=== PATIENT | female | born 1990 | race Two or more races ===

== ENCOUNTER 2020-07-25 15:35 | Emergency (ER) | payer OTHER, SELFPAY ==
[2020-07-25 15:39] VITALS: BP 120/77; PULSE 82; RESP 16; TEMP 36.9; O2SAT 98; BMI 21.6
[2020-07-25 16:43] LABS: Influenza A PCR NEGATIVE (Negative); Influenza B PCR NEGATIVE (Negative); Resp Syncy Virus RNA Qual PCR NEGATIVE (Negative)
[2020-07-25 16:55] LABS: SARS COV2 PCR INHOUSE POSITIVE (Negative)
--- NOTE | 2020-07-25 17:29 | ED.GENADULT ---
HPI - General Adult General Chief complaint: General Medical Stated complaint: fever Time Seen by Provider: 07/25/20 15:44 Source: patient Mode of arrival: ambulatory Limitations: no limitations History of Present Illness HPI narrative: 30-year-old female presenting to the ED with her daughter for a COVID test. Patient reports that her daughter's 3-month-old and has sickle cell and she has not been out of the house and she woke up with a fever today. 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 Patient denies any other symptoms complaints or concerns at this time. Related Data Previous Rx's Medication Instructions Recorded acetaminophen [Tylenol Extra 1,000 mg PO QID PRN #14 tab 07/25/20 Strength] azithromycin See Rx Instructions .ROUTE 07/25/20 .COMPLEX #6 tab Allergies Allergy/AdvReac Type Severity Reaction Status Date / Time No Known Allergies Allergy Unverified 04/10/20 16:54 [No Known Allergies*] Review of Systems Review of Systems: Constitutional : No Fever, No Chills, No fatigue, No Malaise ENT/Mouth : No sore throat, No runny nose Eyes: No Discharge Cardiovascular : No Chest Pain, No SOB Respiratory : No Cough, No Sputum, No Wheezing, No Smoke Exposure, No Dyspnea Gastrointestinal : No Nausea, No Vomiting, No Diarrhea Genitourinary : No irregular bleeding, No Dysuria, No Urinary Frequency, No Hematuria, No Urinary Incontinence, No Urgency, No Flank Pain, Musculoskeletal : No Myalgia Skin : No rash Neuro : No Headache Yes all other systems are reviewed and are negative [facility] Past Medical History Attestation statement: The following information was validated with the patient. Medical History SVT (supraventricular tachycardia) Social History Social History Advance Directives: No Advance Directives Information Provided: No Physical Exam Vital Signs: Vital Signs: Last Vital Signs Temp 98.4 F 07/25/20 15:39 Pulse 82 07/25/20 15:39 Resp 16 07/25/20 15:39 BP 120/77 07/25/20 15:39 Pulse Ox 98 07/25/20 15:39 Body Mass Index 21.6 vital signs have been reviewed as normal and appeared to be correct. Blood pressure normal. Heart rate normal. Respiration rate normal. Temperature normal. Oxygen saturation normal. Appearance: Alert. Oriented X3. No acute distress. Head: Normal external exam. Normocephalic. Atraumatic. No Alvarado signs noted. No raccoon eyes noted Eyes: PERRLA. EOMI. Conjunctiva and sclera normal. Eyelids normal. ENT: EAC normal. TM's Normal. Pharynx normal. Uvula midline. Moist mucous membranes. No trismus noted. No drooling noted. No muffled voice noted. Neck: Normal inspection. Neck supple. FROM. No adenopathy. Thyroid Normal. No meningeal signs. No neck mass noted. CVS: Normal heart rate and rhythm. Heart sound normal. No murmurs noted. Pulses normal throughout. Respiratory: No respiratory distress. Painless inspiration. Breath sounds normal. No wheezes/rales/rhonchi noted. Chest nontender. No accessory muscle usage noted or decreased air movement noted. Abdomen: Soft and nontender. Bowel sounds normal in all 4 quadrants. No distention noted. No organomegaly noted. No visible injury noted. Back: No CVA tenderness. Full range of motion noted. Skin: Skin warm and dry. Normal skin color. Normal skin turgor. No rashes/lesions/lacerations noted. Extremities: No lower extremity edema. Extremities exhibit normal range of motion. Extremities nontender. Neuro: Oriented X 3. No motor deficit. No sensory deficit. Reflexes normal. Course Course Course Narrative: Patient positive for COVID. Will DC home with symptomatic treatment along with instructions to return if any new or worsening symptoms to follow up with primary care provider. Patient understands agrees the plan. Medical Decision Making Medical Records Medical records reviewed: Yes I reviewed the patient's medical records. Lab Data Lab results reviewed: Yes I reviewed the patient's lab results. Labs: Lab Results 07/25/20 Range/Units 15:53 Coronavirus (PCR) POSITIVE A (Negative) Influenza Type A (PCR) NEGATIVE (Negative) Influenza Type B (PCR) NEGATIVE (Negative) RSV RNA Qual (PCR) NEGATIVE (Negative) Discharge Plan Discharge Clinical Impression: COVID-19 Patient Disposition: Home, Self-Care Instructions: COVID-19 (Coronavirus Disease 2019) (ED) Additional Instructions: Based on your symptoms and history we have sent a COVID-19. Although your RESULT IS PENDING at this time. RESULTS should return within 72 hours. At this time you will be contacted with either NEGATIVE OR POSITIVE results. -Please wait until we contact you for your results. At this time you will be okay for discharge. Please plan for self quarantine for up to 14 days. Do not expose yourself to others. You may not go to work. If testing does come back negative you may return to activities as long as you are no longer having any symptoms for at least 3 days. Please continue to follow cold instructions and wash your hands frequently. You may take Tylenol as directed on the bottle for pain or fever. Patient seen in the emergency department on 07/25/2020 and should be excused from work until negative test results AND until 72 hours without any symptoms AND at least 10 days have passed since symptoms first appeared or since last exposure to COVID-19 positive patient CDC Guidelines for home isolation: - Stay away from others - WEAR A MASK if you are sick AND STAY HOME - Cover your mouth and nose with a tissue when you cough or sneeze. Dispose of tissues in a lined trash can and wash your hands immediately with soap and water for at least 20 seconds. If soap and water are not available, clean hands with alcohol-based hand sulfur chloride operator that contains at least 60% alcohol. - Clean your hands often with soap and water for at least 20 seconds - Avoid touching your eyes, nose and mouth with unwashed hands - Do not share dishes, drinking glasses, cups, eating utensils, towels, or bedding with other people in your home. After using these items, wash them thoroughly with soap and water or put in the marble polisher hand. - Clean high-touch surfaces in your isolation area ( sick room and bathroom) every day; let a caregiver clean and disinfect high-touch surfaces in other areas of the home. Clean the area or item with soap and water or another detergent if it is dirty. Then, use a household disinfectant. - Limit contact with pets and animals: If you must care for a pet, wash your hands before and after interacting with them). Prescriptions: New acetaminophen [Tylenol Extra Strength] 500 mg tablet 1,000 mg PO QID PRN (Reason: fever or pain) Qty: 14 RF: 0 azithromycin 250 mg tablet See Rx Instructions .ROUTE .COMPLEX Qty: 6 RF: 0 Referrals: Physician,None [Primary Care Provider] - 2 days (your pcp) Stand Alone Forms: Work/School Release Interventions: ED Discharge Assessment Last Done: 07/25/20 17:49 Discharge Date/Time: 07/25/20 17:50 Print Language: Sammarinese
== END 2020-07-25 17:50 | disposition home or self-care (01) ==
PROVIDERS: Physician Assistant Medical; Emergency Provider Emergency Medicine
DX: U07.1 COVID-19 (principal)
CPT/HCPCS: 0241U; 99283

== ENCOUNTER → 2022-07-14 12:14 | Outpatient (BNVA) | payer OTHER, SELFPAY | PROVIDERS: Visit Provider Physician Assistant | DX: S46.911A Strain of unspecified muscle, fascia and tendon at shoulder and upper arm level, right arm, initial encounter (principal); X50.3XXA Overexertion from repetitive movements, initial encounter | CPT/HCPCS: 99203 ==

== ENCOUNTER → 2022-07-21 14:01 | Outpatient (BNVA) | payer OTHER, SELFPAY | PROVIDERS: Visit Provider Physician Assistant Medical | DX: S46.911A Strain of unspecified muscle, fascia and tendon at shoulder and upper arm level, right arm, initial encounter (principal); X50.3XXA Overexertion from repetitive movements, initial encounter | CPT/HCPCS: 99213 ==

== ENCOUNTER → 2022-07-27 13:01 | Outpatient (BNVA) | payer OTHER, SELFPAY | PROVIDERS: Visit Provider Physician Assistant Medical | DX: S46.911D Strain of unspecified muscle, fascia and tendon at shoulder and upper arm level, right arm, subsequent encounter (principal); W50.3XXD Accidental bite by another person, subsequent encounter | CPT/HCPCS: 99213 ==

== ENCOUNTER → 2022-08-10 13:21 | Outpatient (BNVA) | payer OTHER, SELFPAY | PROVIDERS: Visit Provider Physician Assistant Medical | DX: S46.911D Strain of unspecified muscle, fascia and tendon at shoulder and upper arm level, right arm, subsequent encounter (principal); S33.9XXD Sprain of unspecified parts of lumbar spine and pelvis, subsequent encounter; X50.3XXD Overexertion from repetitive movements, subsequent encounter | CPT/HCPCS: 99213 ==

== ENCOUNTER 2022-08-16 13:00 | Outpatient (RCR) | payer OTHER, SELFPAY ==
--- NOTE | 2022-08-04 10:02 | MHC.PT.EP ---
[facility] [place] Office [place] Office [place] Office [address] [phone] F: [phone] F: [phone] F: [phone] F: [phone] Physical Therapy Plan of Care Date of Evaluation: Date of Surgery: NA Diagnosis: Lumbar strain Assessment: Alice is a 32 year old female who is referred to PT for lumbar strain . She injured herself at works about 2 weeks back while she was restraining a child. She experienced the pain the following day. She went to where she was given pain medication and stretches however her pain has no changed. On PT examination she presented with TTP over L QL, L lumbar paraspinals, 6/10 pain with sitting for more than 1 hour, bending and lifting, decreased lumbar ROM, decreased muscle strength, altered posture and gait. She is independent with all ADLS but has pain with them. 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 She would benefit from skilled PT to address the aforementioned impairments and improve tolerance to functional activities. Frequency and Duration: The patient will be seen 2/week for 5 weeks Short Term Goals: 1. Pt will have 50% decrease in pain which will enable to sleep in supine without pain in 2 weeks. 2. Pt will be able to move trunk through all planes of motion without pain which will enable her to dress her lower body in 3 weeks. Senior Care Goals: 1. Pt will demonstrate an increase in muscle strength by 1 grade which will enable her to perform ADLS at home without pain and modification in 4 weeks. 2. Pt will be independent with HEP and return to PLOF and work activities in 5 weeks. Treatment Plan: Modalities to reduce pain, spasms and effusion. Manual therapy to restore motion and function. Therapeutic exercise to improve strength and flexibility. Neuromuscular re-education for posture and balance. Therapeutic activities to return to functional activities of daily living. Electronically signed by: Kelsey Curry PT DPT Please sign and return to therapist. Thank you for your referral.
--- NOTE | 2022-09-08 13:42 | MHC.PT.DC ---
[facility] [place] Office [place] Office [place] Office [address] Talya Kirk [address] [phone] F: [phone] F: [phone] F: [phone] F: [phone] Physical Therapy Discharge Report Diagnosis: Lumbar strain Date of Surgery: NA Date of Evaluation: 08/04/22 Date of Discharge: 09/08/22 Treatments to Date: 3 Cancellations to Date: 4 No Shows to Date: 2 Discharge Status: Visit Non-compliance Discharge Summary: Alice attended only 3 PT visits. She has had 4 cancels and 2 no shows. She is therefore being d/c for non compliance Electronically signed by: Kelsey Curry PT DPT Please sign and return to therapist. Thank you for your referral.
== END 2022-09-08 13:42 | disposition home or self-care (01) ==
LOC: HO.PT 13:00
PROVIDERS: Visit Provider Physician Assistant Medical
DX: S39.012D Strain of muscle, fascia and tendon of lower back, subsequent encounter (principal)
CPT/HCPCS: 97110; 97112; 97140; 97161

== ENCOUNTER → 2022-08-17 12:46 | Outpatient (BNVA) | payer OTHER, SELFPAY | PROVIDERS: Visit Provider Physician Assistant Medical | DX: S46.911D Strain of unspecified muscle, fascia and tendon at shoulder and upper arm level, right arm, subsequent encounter (principal); X50.3XXD Overexertion from repetitive movements, subsequent encounter; M46.1 Sacroiliitis, not elsewhere classified | CPT/HCPCS: 99213 ==

== ENCOUNTER → 2022-08-31 13:23 | Outpatient (BNVA) | payer OTHER, SELFPAY | PROVIDERS: Visit Provider Physician Assistant Medical | DX: S33.9XXD Sprain of unspecified parts of lumbar spine and pelvis, subsequent encounter (principal); X50.3XXD Overexertion from repetitive movements, subsequent encounter; M46.1 Sacroiliitis, not elsewhere classified | CPT/HCPCS: 99213 ==

== ENCOUNTER → 2022-09-14 13:29 | Outpatient (BNVA) | payer OTHER, SELFPAY | PROVIDERS: Visit Provider Physician Assistant Medical | DX: S39.012D Strain of muscle, fascia and tendon of lower back, subsequent encounter (principal); X50.3XXD Overexertion from repetitive movements, subsequent encounter | CPT/HCPCS: 99213 ==

== ENCOUNTER → 2022-09-28 13:25 | Outpatient (BNVA) | payer OTHER, SELFPAY | PROVIDERS: Visit Provider Physician Assistant Medical | DX: S33.9XXD Sprain of unspecified parts of lumbar spine and pelvis, subsequent encounter (principal); X58.XXXD Exposure to other specified factors, subsequent encounter; M46.1 Sacroiliitis, not elsewhere classified | CPT/HCPCS: 99213 ==

== ENCOUNTER → 2022-10-13 10:06 | Outpatient (BNVA) | payer OTHER, SELFPAY | PROVIDERS: Visit Provider Physician Assistant Medical | DX: S46.911D Strain of unspecified muscle, fascia and tendon at shoulder and upper arm level, right arm, subsequent encounter (principal); S33.9XXD Sprain of unspecified parts of lumbar spine and pelvis, subsequent encounter; S33.6XXD Sprain of sacroiliac joint, subsequent encounter; X50.3XXD Overexertion from repetitive movements, subsequent encounter | CPT/HCPCS: 99213 ==

== ENCOUNTER 2024-01-11 12:13 | Emergency (ER) | payer SELFPAY ==
[2024-01-11 12:15] VITALS: BP 109/78; PULSE 100; O2SAT 98
--- NOTE | 2024-01-11 12:15 | ECG_ITS ---
Test Reason : CHEST PALPITATIONS Blood Pressure : / mmHG Vent. Rate : 093 BPM Atrial Rate : 093 BPM P-R Int : 102 ms QRS Dur : 084 ms QT Int : 370 ms P-R-T Axes : 071 087 045 degrees QTc Int : 460 ms Sinus rhythm with short [place] Nonspecific ST abnormality Abnormal ECG When compared to the previous EKG of No significant changes seen Referred By: Generic ED Physician Electronically Signed By:Koffi Guzman
[2024-01-11 12:17] VITALS: BP 124/72; PULSE 94; RESP 18; TEMP 36.5; O2SAT 100; BMI 21.8
--- NOTE | 2024-01-11 12:50 | ED.ARRPALP ---
HPI - Arrhythmia/Palpitations General Chief Complaint: Arrhythmia/Palpitations Stated Complaint: HR 180,PALPITATIONS, NOW NSR PER EMS Time Seen by Provider: 01/11/24 12:35 Source: patient and EMS Mode of arrival: EMS Limitations: no limitations History of Present Illness ED Provider: LUPILLO HPI narrative: 33 yo female with PMH of SVT used to be on metoprolol daily many years ago but lost follow up with PCP, not on OCPs, has frequent episodes at home but tries to break them on her own presents with c/o SVT today that she could not break and ended up having what sounds like syncopal event but did not wake up confused or incontinent. She has passed out with SVT in past. She is asking for cardiology referral MD complaint: heart racing Onset (ago): hour(s) (1) Duration: now resolved Severity: severe Context: occurred during rest Arrhythmia history: SVT Associated symptoms: syncope Treatments prior to arrival: adenosine (6mg, 12mg) Related Data Previous Rx's ?Medication ?Instructions ?Recorded acetaminophen 500 mg tablet 1,000 mg (2 x 500 mg) PO QID PRN 07/25/20 (Tylenol Extra Strength) fever or pain #14 tabs azithromycin 250 mg tablet See Rx Instructions PO .COMPLEX #6 07/25/20 tabs cyclobenzaprine 10 mg tablet 10 mg PO TID PRN mucle spasm #20 08/17/22 tabs ibuprofen 800 mg tablet 800 mg PO TID PRN pain #30 tabs 08/17/22 metoprolol succinate 25 mg 25 mg PO DAILY #30 tabs 01/11/24 tablet,extended release 24 hr (Toprol XL) Allergies Allergy/AdvReac Type Severity Reaction Status Date / Time No Known Allergies Allergy Verified 01/11/24 12:19 [No Known Allergies*] Review of Systems Review of Systems: Constitutional : No Fever, No Chills, No Fatigue ENT/Mouth : No sore throat, No Rhinorrhea Eyes: No Eye Pain, No Swelling, No Redness Cardiovascular : No Chest Pain, No SOB, No Dyspnea on Exertion, pos palpitations Respiratory : No Cough, No Sputum Gastrointestinal : No Nausea, No Vomiting, No Diarrhea, No abdominal Pain Genitourinary : No Dysuria, No Urinary Frequency, No Hematuria, Musculoskeletal : No joint pain, No Myalgias, No Joint Swelling Skin : No Skin Lesions, No rash Neuro : No Weakness, No Numbness, No Dizziness, no Headache Psych : No Anxiety/Panic, No Depression Heme/Lymph: No Bruising, No Bleeding,No Lymphadenopathy Endocrine : No Polyuria, No Polydipsia All other systems reviewed and are negative [facility] Past Medical History Attestation statement: The following information was validated with the patient. Source: old records reviewed Medical History SVT (supraventricular tachycardia) Social History Social History Alcohol intake: never Smoked in Last 30 Days: Yes Use of substances other than those prescribed or required for medical reasons: No Advance Directives: No Advance Directives Information Provided: Yes Do you have a plan to hurt others: No Plan Physical Exam Vital Signs: Vital Signs: Last Vital Signs Temp 97.7 F 01/11/24 12:17 Pulse 94 01/11/24 12:17 Resp 18 01/11/24 12:17 BP 124/72 01/11/24 12:17 Pulse Ox 100 01/11/24 12:17 O2 Del Method Room Air 01/11/24 12:17 BMI result Body Mass Index 21.8 Appearance: Alert. Oriented X3. No acute distress. Eyes: Pupils equal, round and reactive to light. ENT: Pharynx normal. Neck: Normal inspection. Neck supple. CVS: Normal heart rate and rhythm. Pulses normal. Respiratory: No respiratory distress. Breath sounds normal. Abdomen: Soft and nontender. Skin: Skin warm and dry. Normal skin color. Normal skin turgor. Extremities: No lower extremity edema. No calf ttp Neuro: Oriented X 3. No motor deficit. No sensory deficit. Medications Administered Discontinued Medications Generic Name Dose Route Start Last Admin Trade Name Freq PRN Reason Stop Dose Admin Sodium Chloride 1,000 mls @ 999 mls/hr 01/11/24 12:42 01/11/24 13:05 Ns IV 01/11/24 13:42 999 mls/hr .Q1H1M ONE Administration Medical Decision Making Medical Decision Making MDM Narrative: 33 yo female with SVT no long on Toprol due to lack of provider now having SVT at home that she can normall manage with maneuvers though today she could not - had to get adenosine to break. At this time had syncopal episode as well she is PERC negative. I am going to obtain labs lytes and hydrate will start on toprol and refer to cardiology Differential Diagnosis Differential Diagnoses: The differential diagnosis associated with the presentation includes SVT, lyte abnormallity Admission/Observation Consideration of admission/observation: Escalation of care including admission/observation considered work up negative stable for DC Lab Data [facility] Lab Attestation statement: I reviewed the patient's lab results. 01/11/24 13:02 01/11/24 13:02 Labs: Lab Results 01/11/24 01/11/24 Range/Units 13:02 13:13 WBC 4.8 (4.8-10.8) X10*3/uL RBC 4.23 (4.20-5.50) X10*6/uL Hgb 13.6 (12.0-16.0) g/dl Hct 38.3 (37.0-47.0) % MCV 90.5 (80.0-98.0) fL MCH 32.2 (27.0-33.0) pg MCHC 35.5 H (31.0-35.0) g/dl RDW 12.5 (11.0-16.0) % Plt Count 220 (160-400) X10*3/uL MPV 10.7 (9.4-12.3) fL Immature Gran % (Auto) 0.2 (0.0-0.4) % Neut % (Auto) 47.4 (45-73) % Lymph % (Auto) 38.5 (20-40) % Pepin % (Auto) 7.6 (2-11) % Eos % (Auto) 5.9 H (0-4) % Baso % (Auto) 0.4 (0-2) % Lymph # (Auto) 1.8 (1.2-4.9) X10*3/uL Pepin # (Auto) 0.4 (0.1-1.2) X10*3/uL Eos # (Auto) 0.3 (0.0-0.4) X10*3/uL Baso # (Auto) 0.0 (0.0-0.2) X10*3/uL Abs Immat Gran (auto) 0.01 (0.00-0.03) X10*3/uL Absolute Neuts (auto) 2.3 (2.0-8.3) x10*3/uL Absolute Nucleated RBC 0.000 (0.0-0.012) X10*3/uL Nucleated RBC % (auto) 0.0 (0.0-0.2) /100WBC Sodium 147 H (135-145) mmol/L Potassium 3.7 (3.3-5.1) mmol/L Chloride 113 H (96-108) mmol/L Carbon Dioxide 29 (22-29) mmol/L Anion Gap 9 L (12-20) BUN 8 L (9-16) mg/dL Creatinine 0.62 (0.5-1.4) mg/dL Estim Creat Clear Calc 115.0 Estimated GFR > 60 Random Glucose 91 (60-115) mg/dL Calcium 9.3 (8.4-10.2) mg/dL Magnesium 1.8 (1.6-2.6) mg/dL Total Bilirubin 0.8 (0.0-1.0) mg/dL Direct Bilirubin 0.3 (0.0-0.5) mg/dL AST 16 (5-31) U/L ALT 14 (0-31) U/L Alkaline Phosphatase 57 (39-117) U/L Total Protein 7.0 (6.5-8.0) g/dL Albumin 4.2 (3.5-5.0) g/dL TSH 0.66 (0.32-4.0) uIU/mL Beta HCG, Quant < 2 mIU/mL Urine Color Yellow Urine Appearance Clear Urine pH 7.5 (5.0-9.0) Ur Specific [place] <= 1.005 (1.005-1.025) Urine Protein Negative (Neg-Trace) mg/dL Urine Glucose (UA) Negative (Negative) mg/dL Urine Ketones Trace (Negative) mg/dL Urine Blood Negative (Negative) Urine Nitrite Negative (Negative) Ur Leukocyte Esterase Negative (Negative) Urine RBC 0-2 (0-2) /HPF Urine WBC 0-5 (0-5) /HPF Ur Squamous Epith Cells 0-2 (0-2) /HPF Urine Bacteria None Seen (None Seen) Hyaline Casts 0-2 (0-2) /LPF Independent Interpretation I performed an independent interpretation of an: EKG Interpretation: Rate: 93 Rhythm: NSR [place]: normal Normal P waves. Normal BETZY. Normal QRS complex. ST T wave : normal no SABA qTC: 460 prior studies: normal The study has been interpreted contemporaneously by me. . Independent Historian Clinical information obtained from an independent historian. History obtained from or confirmed by: Spouse External Record Review External record reviewed: Inpatient record Prescription Management I considered prescription management with: Other Discharge Plan Discharge Clinical Impression: Supraventricular tachycardia Patient Disposition: Home, Self-Care Instructions: Supraventricular Tachycardia (ED) Additional Instructions: return for worsening symptoms or concerns hold toprol if blood pressure less than 90 top number or heart rate under 60 follow up with cardiology stay hydrated and rest stay out of heat the next 3 days Prescriptions: New metoprolol succinate [Toprol XL] 25 mg tablet extended release 24 hr 25 mg PO DAILY Qty: 30 2RF No Action acetaminophen [Tylenol Extra Strength] 500 mg tablet 1,000 mg PO QID PRN (Reason: fever or pain) Qty: 14 0RF azithromycin 250 mg tablet See Rx Instructions .ROUTE .COMPLEX Qty: 6 0RF Rx Instructions: take 500 mg today (day 1), then 250 mg for 4 days (days 2-5) cyclobenzaprine 10 mg tablet 10 mg PO TID PRN (Reason: mucle spasm) Qty: 20 0RF ibuprofen 800 mg tablet 800 mg PO TID PRN (Reason: pain) Qty: 30 0RF Referrals: Koffi Guzman MD [Physician] - (project manager finance call to follow up) Stand Alone Forms: Work/School Release Print Language: Zambian
[2024-01-11] MEDS: 0.9 % Sodium Chloride 1,000 ML 999 ML IV ×2 (13:05→14:11)
[2024-01-11 13:15] LABS: MANUAL DIFF FLAG NO
[2024-01-11 13:17] LABS: Basophils Percent Auto 0.4 % (0-2); Eosinophils Absolute Auto 0.3 X10*3/uL (0.0-0.4); Eosinophils Percent Auto 5.9 % (0-4); Hematocrit 38.3 % (37.0-47.0); Hemoglobin 13.6 g/dl (12.0-16.0); Imm Gran Abs Auto 0.01 X10*3/uL (0.00-0.03); Imm Gran Pct Auto 0.2 % (0.0-0.4); Lymphocytes Absolute Auto 1.8 X10*3/uL (1.2-4.9); Lymphocytes Percent Auto 38.5 % (20-40); Mean Corpuscular HGB Conc 35.5 g/dl (31.0-35.0); Mean Corpuscular Hemoglobin 32.2 pg (27.0-33.0); Mean Corpuscular Volume 90.5 fL (80.0-98.0); Mean Platelet Volume 10.7 fL (9.4-12.3); Monocytes Absolute Auto 0.4 X10*3/uL (0.1-1.2); Monocytes Percent Auto 7.6 % (2-11); Neutrophils Absolute Auto 2.3 x10*3/uL (2.0-8.3); Neutrophils Percent Auto 47.4 % (45-73); Platelet Count 220 X10*3/uL (160-400); Red Blood Count 4.23 X10*6/uL (4.20-5.50); Red Cell Distribution Width 12.5 % (11.0-16.0); White Blood Count 4.8 X10*3/uL (4.8-10.8)
[2024-01-11 13:19] LABS: Appearance Urine Clear; Color Urine Yellow; Glucose Urine UA Negative (Negative); Leukocyte Esterase Urine Negative (Negative); Nitrite Urine Negative (Negative); PH 7.5 (5.0-9.0); Specific Gravity - Urine <= 1.005 (1.005-1.025); Urine Blood Negative (Negative); Urine Ketones Trace mg/dL (Negative); Urine Protein Negative (Neg-Trace)
[2024-01-11 13:22] LABS: Bacteria Urine None Seen (None Seen); Hyaline Casts Urine 0-2 /LPF (0-2); RBC Urine 0-2 /HPF (0-2); Squamous Epithelial Cell Urine 0-2 /HPF (0-2); WBC Urine 0-5 /HPF (0-5)
[2024-01-11 13:38] LABS: Alanine Aminotransferase 14 U/L (0-31); Albumin Level 4.2 g/dL (3.5-5.0); Alkaline Phosphatase 57 U/L (39-117); Anion Gap 9 (12-20); Aspartate Amino Transferase 16 U/L (5-31); Bilirubin Direct 0.3 mg/dL (0.0-0.5); Bilirubin Total 0.8 mg/dL (0.0-1.0); Blood Urea Nitrogen 8 mg/dL (9-16); Calcium 9.3 mg/dL (8.4-10.2); Carbon Dioxide 29 mmol/L (22-29); Chloride 113 mmol/L (96-108); Estimated Glomerular Filt Rate > 60; Glucose Random 91 mg/dL (60-115); HCG Quantitative < 2 mIU/mL; Magnesium 1.8 mg/dL (1.6-2.6); Potassium 3.7 mmol/L (3.3-5.1); Sodium 147 mmol/L (135-145)
[2024-01-11 13:51] LABS: TSH reflex Free T4 0.66 uIU/mL (0.32-4.0)
[2024-01-11 14:00] VITALS: BP 103/55; PULSE 78; RESP 19; TEMP 36.9; O2SAT 100
[2024-01-11 14:39] VITALS: BP 103/55; PULSE 78; RESP 18; TEMP 36.9; O2SAT 98
== END 2024-01-11 14:45 | disposition home or self-care (01) ==
PROVIDERS: Emergency Provider Emergency Medicine
DX: I47.10 Supraventricular tachycardia, unspecified (principal); I49.9 Cardiac arrhythmia, unspecified; R00.2 Palpitations; R11.0 Nausea; R10.2 Pelvic and perineal pain; Z79.899 Other long term (current) drug therapy
CPT/HCPCS: 36415; 80048; 80076; 81001; 83735; 84443; 84702; 85025; 93005; 96360; 99284; 99285

== ENCOUNTER → 2024-01-11 12:15 | Outpatient (BNV) | payer SELFPAY | PROVIDERS: Emergency Provider Emergency Medicine; Visit Provider Internal Medicine Cardiovascular Disease | DX: R94.31 Abnormal electrocardiogram [ECG] [EKG] (principal) | CPT/HCPCS: 93010 ==

== ENCOUNTER 2024-04-13 07:57 | Emergency (ER) | payer MEDICAID, SELFPAY ==
[2024-04-13 08:33] VITALS: BP 116/78; PULSE 78; RESP 18; TEMP 36.9; O2SAT 100; BMI 23.2
--- NOTE | 2024-04-13 08:38 | ED.GENADULT ---
HPI - General Adult General Chief complaint: General Medical Stated complaint: Diarrhea/Headache/Body pains Time Seen by Provider: 04/13/24 08:13 Source: patient and old records reviewed Mode of arrival: ambulatory Limitations: no limitations History of Present Illness ED Provider: LUPILLO MAYA narrative: 33 yo female with PMH of SVT who notes she is not vaccinated against COVID went to a birthday alliance party on Tuesday and then next day her mom told her she had COVID, her son then got COVID, another child got strep. 3 days ago she started with headaches, chills, body aches, nausea/vomiting, diarrhea, cough and nasal congestion. She did not test herself. She feels tired and sick this AM. complaint: viral illness Onset (ago): day(s) (3) Location: head Radiation: non-radiation Severity: moderate Quality: aching Pain Consistency: constant Relieving factors: none Exacerbating factors: movement Associated symptoms: fever/chills, headaches, loss of appetite, malaise, nausea/vomiting and weakness Treatments prior to arrival: none Related Data Previous Rx's ?Medication ?Instructions ?Recorded acetaminophen 500 mg tablet 1,000 mg (2 x 500 mg) PO QID PRN 07/25/20 (Tylenol Extra Strength) fever or pain #14 tabs azithromycin 250 mg tablet See Rx Instructions PO .COMPLEX #6 07/25/20 tabs cyclobenzaprine 10 mg tablet 10 mg PO TID PRN mucle spasm #20 08/17/22 tabs ibuprofen 800 mg tablet 800 mg PO TID PRN pain #30 tabs 08/17/22 metoprolol succinate 25 mg 25 mg PO DAILY #30 tabs 01/11/24 tablet,extended release 24 hr (Toprol XL) amoxicillin 500 mg tablet 500 mg PO BID #20 tabs 04/13/24 ondansetron 4 mg disintegrating 4 mg PO Q8H PRN nausea and 04/13/24 tablet vomiting #20 tabs Allergies Allergy/AdvReac Type Severity Reaction Status Date / Time No Known Allergies Allergy Verified 04/13/24 08:34 [No Known Allergies*] Review of Systems Review of Systems: Constitutional : positive Fever, positive Chills, positive fatigue, positive Malaise ENT/Mouth : positive sore throat, positive runny nose Eyes: No Discharge Cardiovascular : No Chest Pain, No SOB Respiratory :pos Cough, No Sputum Gastrointestinal : pos Nausea, No Vomiting, pos Diarrhea Genitourinary : No Dysuria, No Urinary Frequency Musculoskeletal : positive Myalgia Skin : No rash Neuro : pos Headache All other systems reviewed and are negative [facility] Past Medical History Attestation statement: The following information was validated with the patient. Source: old records reviewed Medical History SVT (supraventricular tachycardia) Social History Social History Alcohol intake: never Smoked in Last 30 Days: No Use of substances other than those prescribed or required for medical reasons: No Advance Directives: No Advance Directives Information Provided: Yes Patient : No Physical Exam ED Vital Signs: Vital Signs - 24 hr 04/13/24 08:33 Temperature 98.4 F Pulse Rate 78 Respiratory Rate 18 Blood Pressure 116/78 Pulse Oximetry 100 Oxygen Delivery Method Room Air BMI result Body Mass Index 23.2 Appearance: Alert. Oriented X3. No acute distress. Eyes: Pupils equal, round and reactive to light. ENT: Pharynx mild dry MM. mild erythema prior tonsillectomy Neck: Normal inspection. Neck supple. CVS: Normal heart rate and rhythm. Pulses normal. Respiratory: No respiratory distress. Breath sounds normal. Abdomen: Soft and nontender. Skin: Skin warm and dry. Normal skin color. Normal skin turgor. Extremities: No lower extremity edema. Neuro: Oriented X 3. No motor deficit. No sensory deficit. Medications Administered Generic Name Dose Route Start Last Admin Trade Name Freq PRN Reason Stop Dose Admin Lactated Ringer's 1,000 mls @ 999 mls/hr 04/13/24 08:35 04/13/24 08:47 Lr IV 04/13/24 09:35 999 mls/hr .Q1H1M ONE Administration Discontinued Medications Generic Name Dose Route Start Last Admin Trade Name Freq PRN Reason Stop Dose Admin Ketorolac Tromethamine 15 mg 04/13/24 08:35 04/13/24 08:47 Ketorolac Tromethamine 15 Mg/Ml Vial IVPUSH 04/13/24 08:36 15 mg ONCE ONE Administration Ondansetron HCl 4 mg 04/13/24 08:35 04/13/24 08:47 Ondansetron Hcl 4 Mg/2 Ml Vial IVPUSH 04/13/24 08:36 4 mg ONCE ONE Administration Medical Decision Making Medical Decision Making MDM Narrative: 33 yo female with PMH of SVT who presents with body aches, URI symptoms, diarrhea at this time she has had family COVID exposurs suspect she has COVID - no CP/SOB. Will obtain swabs, provide supportive care and DC home once feeling better doubt VTE/myocarditis/pneumonia VS stable and no CP/SOB Differential Diagnosis Differential Diagnoses: The differential diagnosis associated with the presentation includes COVID 19, viral syndrome, strep throat Admission/Observation Consideration of admission/observation: Escalation of care including admission/observation considered feels better stable for DC Lab Data [facility] Lab Attestation statement: I reviewed the patient's lab results. Labs: Lab Results 04/13/24 04/13/24 Range/Units 08:11 08:51 COVID-19 (PRINCESS) Positive A (Negative) COVID-19 Clin Com See Note Influenza Type A ([facility]) Negative (Negative) Influenza Type B ([facility]) Negative (Negative) Influenza A & B Note See Note S. pyogenes GrpA [facility]ES[facility] Positive A (Negative) External Record Review External record reviewed: Inpatient record Prescription Management I considered prescription management with: Antibiotic and Other Discharge Plan Discharge Clinical Impression: COVID-19, Strep throat Patient Disposition: Home, Self-Care Instructions: Strep Throat (ED), COVID-19 (Coronavirus Disease 2019) (ED) Additional Instructions: return for worsening symptoms or concerns take tylenol or motrin for body aches wear a mask for 5 more days return for severe chest pain or increased trouble breathing where you cannot do daily activities Prescriptions: New ondansetron 4 mg tablet,disintegrating 4 mg PO Q8H PRN (Reason: nausea and vomiting) Qty: 20 0RF amoxicillin 500 mg tablet 500 mg PO BID Qty: 20 0RF No Action acetaminophen [Tylenol Extra Strength] 500 mg tablet 1,000 mg PO QID PRN (Reason: fever or pain) Qty: 14 0RF azithromycin 250 mg tablet See Rx Instructions .ROUTE .COMPLEX Qty: 6 0RF Rx Instructions: take 500 mg today (day 1), then 250 mg for 4 days (days 2-5) metoprolol succinate [Toprol XL] 25 mg tablet extended release 24 hr 25 mg PO DAILY Qty: 30 2RF cyclobenzaprine 10 mg tablet 10 mg PO TID PRN (Reason: mucle spasm) Qty: 20 0RF ibuprofen 800 mg tablet 800 mg PO TID PRN (Reason: pain) Qty: 30 0RF Stand Alone Forms: Work/School Release Print Language: Mongolian
[2024-04-13 08:41] LABS: COVID-19 Test Positive (Negative); IDNOW Serial# 08D9AD1C; IDNOW Serial# 152EDE1D
[2024-04-13 08:42] LABS: Influenza A Negative (Negative); Influenza B2 Negative (Negative)
[2024-04-13] MEDS: ondansetron HCL 4 MG/2 ML VIAL IVPUSH (08:47)
[2024-04-13] MEDS: Ketorolac Tromethamine 15 MG/ML VIAL IVPUSH (08:47)
[2024-04-13] MEDS: Lactated Ringers 1,000 ML 999 ML IV (08:47)
[2024-04-13 09:02] LABS: IDNOW Serial# 6674DD1D; Strep A Nucleic Acid Positive (Negative)
[2024-04-13] MEDS: Amoxicillin 500 MG CAPSULE PO (09:13)
[2024-04-13 10:07] VITALS: BP 114/76; PULSE 68; RESP 16; TEMP 37.2; O2SAT 97
== END 2024-04-13 10:07 | disposition home or self-care (01) ==
PROVIDERS: Physician Assistant; Emergency Provider Emergency Medicine
DX: U07.1 COVID-19 (principal); J02.0 Streptococcal pharyngitis; M79.10 Myalgia, unspecified site; R51.9 Headache, unspecified; R50.9 Fever, unspecified; R11.2 Nausea with vomiting, unspecified; Z79.899 Other long term (current) drug therapy
CPT/HCPCS: 87502; 87635; 87651; 96361; 96374; 96375; 99284; J1885; J2405; J7120

== ENCOUNTER 2024-11-19 14:13 | Emergency (ER) | payer MEDICAID, SELFPAY ==
--- NOTE | ~2024-11-19 | US_ITS ---
CLINICAL HISTORY: suprapubic pain, R O ectopic US OB 1st trimester transabdominal Comparison: None Findings: Single intrauterine . CRL: 3.94 cm. EGA: 10 weeks 6 days. REGINE: 06/11/2025. Previously established gestational age: N/A. Normal yolk sac . Cardiac activity: 172 bpm. No subchorionic bleed. Corpus luteum in the right ovary. Left ovary is not seen. IMPRESSION: Single intrauterine estimated 10 weeks 6 days gestational age by today's ultrasound criteria. This document has been electronically signed by: Sahra Ellsworth MD on 11/19/2024 21:07:59
--- NOTE | 2024-11-19 14:18 | ECG_ITS ---
Test Reason : heart palpitations Blood Pressure : */* mmHG Vent. Rate : 136 BPM Atrial Rate : * BPM P-R Int : * ms QRS Dur : 164 ms QT Int : 306 ms P-R-T Axes : * 85 41 degrees QTcB Int : 460 ms Supraventricular tachycardia Nonspecific ST-T changes Abnormal ECG When compared with ECG of 11-Jan-2024 12:15, Supraventricular tachycardia Present Referred By: Generic ED Physician Electronically Signed By: Koffi Guzman
--- NOTE | 2024-11-19 14:25 | ED_ITS ---
HPI - General Adult General Chief complaint: Arrhythmia/Palpitations Stated complaint: heart palpitations, cramping Time Seen by Provider: 11/19/24 15:17 Source: patient, RN notes reviewed and old records reviewed Mode of arrival: ambulatory History of Present Illness ED Provider: Karlie Hamilton PA-C HPI narrative: 34-year-old female with a past medical history of SVT presenting to the ED complaining of heart palpitations, chest pressure and SOB beginning at 12:30 this afternoon while sitting on the couch. Admits symptoms have improved at present however reports lower abdominal/suprapubic pain x1 week with associated nausea and clear/white vaginal discharge. LMP unknown. Is currently sexually active, denies concern for STI. States he is active with 1 partner. Denies fever, chills, nausea, vomiting, diarrhea, dysuria/hematuria, vaginal bleeding Related Data Previous Rx's ?Medication ?Instructions ?Recorded acetaminophen 500 mg tablet 1,000 mg (2 x 500 mg) PO QID PRN 07/25/20 (Tylenol Extra Strength) fever or pain #14 tabs azithromycin 250 mg tablet See Rx Instructions PO .COMPLEX #6 07/25/20 tabs cyclobenzaprine 10 mg tablet 10 mg PO TID PRN mucle spasm #20 08/17/22 tabs ibuprofen 800 mg tablet 800 mg PO TID PRN pain #30 tabs 08/17/22 metoprolol succinate 25 mg 25 mg PO DAILY #30 tabs 01/11/24 tablet,extended release 24 hr (Toprol XL) amoxicillin 500 mg tablet 500 mg PO BID #20 tabs 04/13/24 ondansetron 4 mg disintegrating 4 mg PO Q8H PRN nausea and 04/13/24 tablet vomiting #20 tabs vitamins no.159-iron 1 tab PO DAILY #30 tabs 11/19/24 fumarate 28 mg-folic acid 800 mcg tablet ( Vitamin) Allergies Allergy/AdvReac Type Severity Reaction Status Date / Time No Known Allergies Allergy Verified 11/19/24 14:27 [No Known Allergies*] Review of Systems 2 Review of Systems: Yes all other systems are reviewed and are negative Constitutional: Constitutional: Reports as per [facility] Past Medical History Attestation statement: The following information was validated with the patient. Source: old records reviewed Medical History SVT (supraventricular tachycardia) Social History Social History Alcohol intake: never Advance Directives: No Advance Directives Information Provided: Yes Physical Exam ED Vital Signs: Vital Signs - 24 hr 11/19/24 14:26 11/19/24 15:51 11/19/24 17:49 Temperature 98.0 F 98.3 F 98.4 F Pulse Rate 141 H 121 H 86 Respiratory Rate 20 16 18 Blood Pressure 104/71 98/62 94/66 Pulse Oximetry 100 99 100 Oxygen Delivery Method Room Air Room Air Room Air 11/19/24 20:13 Temperature 98.3 F Pulse Rate 87 Respiratory Rate 16 Blood Pressure 94/67 Pulse Oximetry 100 Oxygen Delivery Method Room Air BMI result Body Mass Index 32.5 Const General: cooperative, healthy appearing and no acute distress Orientation/consciousness: patient oriented x3 Limitations: no limitations HENMT Head: Yes normal to inspection and Yes atraumatic Ears: hearing grossly normal bilaterally General nose exam: Normal external nose present Face and sinus: Yes normal facial exam Eyes General: appearance normal, both eyes and all related structures EOM: EOMs intact bilaterally Neck Neck: Yes normal visual inspection and Yes no meningeal signs Resp Effort & Inspection: normal respiratory effort and no respiratory distress Auscultation: clear to auscultation bilaterally Cardio Rate: regular rate and tachycardic Heart sounds: S1 normal heart sound present and S2 normal heart sound present GI Inspection: Yes normal to inspection Palpation (GI): Soft to palpation, Tenderness to palpation present (GI) suprapubicly; with no rebound tenderness, no guarding and not rigid General: Yes no CVA tenderness External Female Exam: normal external appearance Speculum Exam - Vagina: normal appearance of the vagina Speculum Exam - Cervix: normal appearance of the cervix Bimanual exam- vagina & uterus: normal bimanual exam and no cervical motion tenderness Bimanual Exam- Adnexa, other: normal adnexae and no tenderness Back/Spine/Pelvis Back: no CVA tenderness Skin Rashes: no rashes Wounds: no wounds Neuro General: patient oriented x3, tone normal and no meningeal signs Cranial nerves: Yes CN's II-XII intact bilaterally Gait exam (Neuro): Normal gait present Extrem General: Yes normal to inspection Course Course Course Narrative: RME, this is a rapid medical exam performed by Sarabjit Lopez please refer to primary provider for complete H&P- 34-year-old female with SVT presents for evaluation of palpitations and fast heart rate since 07/23, 2 hours ago. She tried Valsalva maneuvers without improvement. Plan for labs: Patient will be brought back to main ED -heart rate in the 120s on this screen writer's eval. Low suspicion for SVT > concern tachycardia related to abdominal pain -WBC count 4.5. H/H stable. Potassium slightly low at 3.2 > p.o. repletion ordered -hCG 64,039 > concern for ectopic > US contacted -1730--on re-evaluation patient denies CP/SOB. Tachycardia improving however still tachycardic w/HR 114 >> due to risk factors of and COVID-19 will obtain D-dimer to rule out PE due to patient's tachycardia and initial complaint of palpitations/SOB -1800-- ED care transferred to [facility] pending d-dimer & US Reevaluation(s) Reevaluation #1: I Mirella Floyd PA-C have accepted care of the patient and signed out Pending D-dimer and ultrasound Dimer back it is within normal range 221 ultrasound:Findings: Single intrauterine . CRL: 3.94 cm. EGA: 10 weeks 6 days. REGINE: 06/11/2025. Previously established gestational age: N/A. Normal yolk sac . Cardiac activity: 172 bpm. No subchorionic bleed. Corpus luteum in the right ovary. Left ovary is not seen. IMPRESSION: Single intrauterine estimated 10 weeks 6 days gestational age by today's ultrasound criteria. Medications Administered Discontinued Medications Generic Name Dose Route Start Last Admin Trade Name Freq PRN Reason Stop Dose Admin Acetaminophen 650 mg 11/19/24 15:40 11/19/24 16:18 Acetaminophen 325 Mg Tablet PO 11/19/24 15:41 650 mg ONCE ONE Administration Sodium Chloride 1,000 mls @ 999 mls/hr 11/19/24 15:45 11/19/24 16:15 Ns IV 11/19/24 16:45 999 mls/hr .Q1H1M MATEO Administration Sodium Chloride 1,000 mls @ 999 mls/hr 11/19/24 16:45 11/19/24 17:30 Ns IV 11/19/24 17:45 999 mls/hr .Q1H1M MATEO Administration Potassium Chloride 40 meq 11/19/24 16:16 11/19/24 17:30 Potassium Chloride Packet 20 Meq Packet PO 11/19/24 16:17 40 meq ONCE ONE Administration Medical Decision Making Medical Decision Making [facility] Narrative: 34-year-old female with a past medical history of SVT presenting to the ED complaining of heart palpitations, chest pressure and SOB beginning at 12:30 this afternoon while sitting on the couch. Admits symptoms have improved at present however reports lower abdominal/suprapubic pain x1 week with associated nausea and clear/white vaginal discharge. On exam tachycardic initially 141 in triage, NAD, appears uncomfortable, abdomen soft with suprapubic tenderness, no rebound or guarding, no CVAT. Low suspicion for severe sepsis at this time [1551]. On pelvic exam no appreciable discharge or bleeding. Cervical os closed. No CMT or adnexal tenderness/masses. Concern for ACS vs SVT vs sinus tachycardia vs thyroid dysfunction vs metabolic abnormalities. Lower suspicion for PE/DVT. Concern for ?ovarian torsion vs vs STI. Low suspicion for TOA or PID. Appendicitis/diverticulitis on differential however lower. Unlikely renal stone/pyelo Plan: EKG, labs, UA, STI testing, CXR Please refer to course for remaining clinical decision making, interpretation of labs/imaging results, and discussions with consultants and/or family members. Differential Diagnosis Differential Diagnoses: The differential diagnosis associated with the presentation includes As above Admission/Observation Consideration of admission/observation: Escalation of care including admission/observation considered Lab Data [facility] Lab Attestation statement: I reviewed the patient's lab results. 11/19/24 14:39 11/19/24 14:39 Labs: Lab Results 11/19/24 11/19/24 11/19/24 Range/Units 14:39 15:42 16:02 WBC 4.5 L (4.8-10.8) X10*3/uL RBC 3.81 L (4.20-5.50) X10*6/uL Hgb 12.1 (12.0-16.0) g/dl Hct 33.5 L (37.0-47.0) % MCV 87.9 (80.0-98.0) fL MCH 31.8 (27.0-33.0) pg MCHC 36.1 H (31.0-35.0) g/dl RDW 13.1 (11.0-16.0) % Plt Count 176 (160-400) X10*3/uL MPV 10.5 (9.4-12.3) fL Immature Gran % (Auto) 0.2 (0.0-0.4) % Neut % (Auto) 43.3 L (45-73) % Lymph % (Auto) 44.8 H (20-40) % [place] % (Auto) 9.1 (2-11) % Eos % (Auto) 2.2 (0-4) % Baso % (Auto) 0.4 (0-2) % Lymph # (Auto) 2.0 (1.2-4.9) X10*3/uL [place] # (Auto) 0.4 (0.1-1.2) X10*3/uL Eos # (Auto) 0.1 (0.0-0.4) X10*3/uL Baso # (Auto) 0.0 (0.0-0.2) X10*3/uL Abs Immat Gran (auto) 0.01 (0.00-0.03) X10*3/uL Absolute Neuts (auto) 2.0 (2.0-8.3) x10*3/uL Absolute Nucleated RBC 0.000 (0.0-0.012) X10*3/uL Nucleated RBC % (auto) 0.0 (0.0-0.2) /100WBC D-Dimer High Sensitivty NG/ML Sodium 139 (135-145) mmol/L Potassium 3.2 L (3.3-5.1) mmol/L Chloride 107 (96-108) mmol/L Carbon Dioxide 22 (22-29) mmol/L Anion Gap 13 (12-20) BUN 6 L (9-16) mg/dL Creatinine 0.54 (0.5-1.4) mg/dL Estim Creat Clear Calc 159.7 Estimated GFR > 60 Random Glucose 89 (60-115) mg/dL Calcium 9.1 (8.4-10.2) mg/dL Magnesium 2.1 (1.6-2.6) mg/dL Total Bilirubin 0.3 (0.0-1.0) mg/dL AST 28 (5-31) U/L ALT 30 (0-31) U/L Alkaline Phosphatase 45 (39-117) U/L Troponin I High Sens < 2.7 (<3.5-17.0) ng/L Total Protein 6.7 (6.5-8.0) g/dL Albumin 4.0 (3.5-5.0) g/dL Lipase 27 (8-78) U/L TSH 0.39 (0.32-4.0) uIU/mL Beta HCG, Quant 21199 mIU/mL Chlam trachomat DNA PCR NOT DETECTED (Not Detect.) Influenza Type A (PCR) NEGATIVE (Negative) Influenza Type B (PCR) NEGATIVE (Negative) N.gonorrhoeae DNA (PCR) NOT DETECTED (Not Detect.) RSV RNA Qual (PCR) NEGATIVE (Negative) SARS-CoV-2 RNA (RT-PCR) POSITIVE A (Negative) T. vaginalis (PCR) NOT DETECTED (Not Detect) Bact vaginosis (PCR) NEGATIVE (Negative) C. krusei/glabrata (PCR) NOT DETECTED (Not Detect) Steph group (PCR) NOT DETECTED (Not Detect) 11/19/24 Range/Units 17:46 WBC (4.8-10.8) X10*3/uL RBC (4.20-5.50) X10*6/uL Hgb (12.0-16.0) g/dl Hct (37.0-47.0) % MCV (80.0-98.0) fL MCH (27.0-33.0) pg MCHC (31.0-35.0) g/dl RDW (11.0-16.0) % Plt Count (160-400) X10*3/uL MPV (9.4-12.3) fL Immature Gran % (Auto) (0.0-0.4) % Neut % (Auto) (45-73) % Lymph % (Auto) (20-40) % [place] % (Auto) (2-11) % Eos % (Auto) (0-4) % Baso % (Auto) (0-2) % Lymph # (Auto) (1.2-4.9) X10*3/uL [place] # (Auto) (0.1-1.2) X10*3/uL Eos # (Auto) (0.0-0.4) X10*3/uL Baso # (Auto) (0.0-0.2) X10*3/uL Abs Immat Gran (auto) (0.00-0.03) X10*3/uL Absolute Neuts (auto) (2.0-8.3) x10*3/uL Absolute Nucleated RBC (0.0-0.012) X10*3/uL Nucleated RBC % (auto) (0.0-0.2) /100WBC D-Dimer High Sensitivty 221 NG/ML Sodium (135-145) mmol/L Potassium (3.3-5.1) mmol/L Chloride (96-108) mmol/L Carbon Dioxide (22-29) mmol/L Anion Gap (12-20) BUN (9-16) mg/dL Creatinine (0.5-1.4) mg/dL Estim Creat Clear Calc Estimated GFR Random Glucose (60-115) mg/dL Calcium (8.4-10.2) mg/dL Magnesium (1.6-2.6) mg/dL Total Bilirubin (0.0-1.0) mg/dL AST (5-31) U/L ALT (0-31) U/L Alkaline Phosphatase (39-117) U/L Troponin I High Sens (<3.5-17.0) ng/L Total Protein (6.5-8.0) g/dL Albumin (3.5-5.0) g/dL Lipase (8-78) U/L TSH (0.32-4.0) uIU/mL Beta HCG, Quant mIU/mL Chlam trachomat DNA PCR (Not Detect.) Influenza Type A (PCR) (Negative) Influenza Type B (PCR) (Negative) N.gonorrhoeae DNA (PCR) (Not Detect.) RSV RNA Qual (PCR) (Negative) SARS-CoV-2 RNA (RT-PCR) (Negative) T. vaginalis (PCR) (Not Detect) Bact vaginosis (PCR) (Negative) C. krusei/glabrata (PCR) (Not Detect) Steph group (PCR) (Not Detect) Independent Interpretation I performed an independent interpretation of an: EKG (My interpretation: EKG wide QRS tachycardia rate of 136. QRS 164. No STEMI. ) and Ultrasound Radiology Impression Discussion of test interpretation with radiology: I have reviewed the radiologist's reading. External Record Review External record reviewed: Inpatient record, Office record, Outpatient record, Prior outpatient labs, Prior outpatient radiology, Primary care record and Outside ED record Tests considered The following testing was considered but not selected: As above Prescription Management I considered prescription management with: Pain Medication and Antibiotic Chronic Conditions Patient?s care impacted by: Other Social Determinants Patient?s care significantly limited by Social Determinants of Health including: Other Social Determinant of Health Discharge Plan Discharge Clinical Impression: Abdominal pain during , Tachycardia, COVID-19 Patient Disposition: Home, Self-Care Instructions: Abdominal Pain in (ED), Tachycardia (ED), COVID-19 (Coronavirus Disease 2019) (ED) Additional Instructions: You are . You need to establish care with an OBGYN and start taking vitamins. Please follow up related rules including no alcohol/drug use Please check with your OB for any medications you currently take to ensure there safe in . All of your labs were normal, the ultrasound revealed that you are 10 weeks and 6 days . YOU HAVE COVID-19 At this time you will be okay for discharge. Please self isolate for 5 days. Do not expose yourself to others. You may not go to work or school. Please continue to follow cold instructions and wash your hands frequently. You may take Tylenol / Motrin as directed on the bottle for pain or fever. If you have constant or persistent shortness of breath, fever unresolved with medications, chest pain, or your unable to eat or drink please return to the ED CDC Guidelines for home isolation: - Stay away from others - WEAR A MASK if you are sick AND STAY HOME - Cover your mouth and nose with a tissue when you cough or sneeze. Dispose of tissues in a lined trash can and wash your hands immediately with soap and water for at least 20 seconds. If soap and water are not available, clean hands with alcohol-based hand crm specialist that contains at least 60% alcohol. - Clean your hands often with soap and water for at least 20 seconds - Avoid touching your eyes, nose and mouth with unwashed hands - Do not share dishes, drinking glasses, cups, eating utensils, towels, or bedding with other people in your home. After using these items, wash them thoroughly with soap and water or put in the national accounts sales. - Clean high-touch surfaces in your isolation area ( sick room and bathroom) every day; let a caregiver clean and disinfect high-touch surfaces in other areas of the home. Clean the area or item with soap and water or another detergent if it is dirty. Then, use a household disinfectant. - Limit contact with pets and animals: If you must care for a pet, wash your hands before and after interacting with them) Prescriptions: New Vitamin 28 mg iron- 800 mcg tablet 1 tab PO DAILY Qty: 30 0RF No Action acetaminophen [Tylenol Extra Strength] 500 mg tablet 1,000 mg PO QID PRN (Reason: fever or pain) Qty: 14 0RF azithromycin 250 mg tablet See Rx Instructions .ROUTE .COMPLEX Qty: 6 0RF Rx Instructions: take 500 mg today (day 1), then 250 mg for 4 days (days 2-5) ondansetron 4 mg tablet,disintegrating 4 mg PO Q8H PRN (Reason: nausea and vomiting) Qty: 20 0RF amoxicillin 500 mg tablet 500 mg PO BID Qty: 20 0RF metoprolol succinate [Toprol XL] 25 mg tablet extended release 24 hr 25 mg PO DAILY Qty: 30 2RF cyclobenzaprine 10 mg tablet 10 mg PO TID PRN (Reason: mucle spasm) Qty: 20 0RF ibuprofen 800 mg tablet 800 mg PO TID PRN (Reason: pain) Qty: 30 0RF Referrals: [facility] [Outside] [facility] [Outside] [facility] [Outside] [facility] [place] [Outside] [facility] [Outside] Stand Alone Forms: Work/School Release Print Language: Luxembourgish
[2024-11-19 14:26] VITALS: BP 104/71; PULSE 141; RESP 20; TEMP 36.7; O2SAT 100; BMI 32.5
[2024-11-19 14:43] LABS: MANUAL DIFF FLAG NO
[2024-11-19 14:44] LABS: Basophils Percent Auto 0.4 % (0-2); Eosinophils Absolute Auto 0.1 X10*3/uL (0.0-0.4); Eosinophils Percent Auto 2.2 % (0-4); Hematocrit 33.5 % (37.0-47.0); Hemoglobin 12.1 g/dl (12.0-16.0); Imm Gran Abs Auto 0.01 X10*3/uL (0.00-0.03); Imm Gran Pct Auto 0.2 % (0.0-0.4); Lymphocytes Percent Auto 44.8 % (20-40); Mean Corpuscular HGB Conc 36.1 g/dl (31.0-35.0); Mean Corpuscular Hemoglobin 31.8 pg (27.0-33.0); Mean Corpuscular Volume 87.9 fL (80.0-98.0); Mean Platelet Volume 10.5 fL (9.4-12.3); Monocytes Absolute Auto 0.4 X10*3/uL (0.1-1.2); Monocytes Percent Auto 9.1 % (2-11); Neutrophils Percent Auto 43.3 % (45-73); Platelet Count 176 X10*3/uL (160-400); Red Blood Count 3.81 X10*6/uL (4.20-5.50); Red Cell Distribution Width 13.1 % (11.0-16.0); White Blood Count 4.5 X10*3/uL (4.8-10.8)
[2024-11-19 15:09] LABS: Alanine Aminotransferase 30 U/L (0-31); Alkaline Phosphatase 45 U/L (39-117); Anion Gap 13 (12-20); Aspartate Amino Transferase 28 U/L (5-31); Bilirubin Total 0.3 mg/dL (0.0-1.0); Blood Urea Nitrogen 6 mg/dL (9-16); Calcium 9.1 mg/dL (8.4-10.2); Carbon Dioxide 22 mmol/L (22-29); Chloride 107 mmol/L (96-108); Creatinine Clr Calc Pharmacy 159.7; Estimated Glomerular Filt Rate > 60; Glucose Random 89 mg/dL (60-115); Lipase 27 U/L (8-78); Magnesium 2.1 mg/dL (1.6-2.6); Potassium 3.2 mmol/L (3.3-5.1); Sodium 139 mmol/L (135-145); Total Protein 6.7 g/dL (6.5-8.0)
[2024-11-19 15:45] LABS: HCG Quantitative 64039 mIU/mL
[2024-11-19 15:51] VITALS: BP 98/62; PULSE 121; RESP 16; TEMP 36.8; O2SAT 99
[2024-11-19 15:52] LABS: Troponin-I High Sensitivity < 2.7 ng/L (<3.5-17.0)
[2024-11-19 16:08] LABS: TSH reflex Free T4 0.39 uIU/mL (0.32-4.0)
[2024-11-19] MEDS: 0.9 % Sodium Chloride 1,000 ML 999 ML IV ×2 (16:15→17:30)
[2024-11-19] MEDS: Acetaminophen 325 MG TABLET 650 MG PO (16:18)
[2024-11-19 16:23] LABS: Influenza A PCR NEGATIVE (Negative); Influenza B PCR NEGATIVE (Negative); Resp Syncy Virus RNA Qual PCR NEGATIVE (Negative); SARS COV2 PCR INHOUSE POSITIVE (Negative)
[2024-11-19] MEDS: Potassium Chloride Packet 20 MEQ PACKET 40 MEQ PO (17:30)
[2024-11-19 17:49] VITALS: BP 94/66; PULSE 86; RESP 18; TEMP 36.9; O2SAT 100
[2024-11-19 18:10] LABS: Bacterial Vaginosis PCR NEGATIVE (Negative); Candida Group PCR NOT DETECTED (Not Detect); Candida glab krusei PCR NOT DETECTED (Not Detect); Trichomonas vaginalis PCR NOT DETECTED (Not Detect)
--- OUTSIDE RECORDS SUMMARY | 2024-11-19 18:10 | XMS_ITS | Clinical Summary ---
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 Phone Hal Ansari MD Primary Care Provider [phone] Surgical History Surgery Date Site/Laterality Comments OTHER SURGICAL HISTORY 2001 PROCEDURE: UT TONSILLECTOMY PRIMARY/SECONDARY AGE 11/> Medical History Medical History Date Comments Depression 11/26/2015 DX:Depression Sickle cell trait ([facility] V24) 11/05/2013 DX:Sickle cell trait ([facility]) History of chlamydia 08/26/2008 DX:History of chlamydia History of anemia 05/31/2016 DX:History of anemia; COMMENT: H&H 10.4 / 30.9 History of colposcopy 01/23/2016 DX:History of colposcopy; COMMENT: negative ASCUS with positive high ris k HPV cervical 12/04/2015 DX:ASCUS with positive high risk HPV cervical Supraventricular tachycardia ([facility] V24) 08/02/2016 DX:Supraventricular tachycar 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 ([facility]); 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 [place] History of anxiety 11/08/2013 DX:History of anxiety Asthma 04/25/2013 DX:Asthma History of urinary tract infection 11/05/2013 DX:History of urinary tract infection History of vitamin D deficiency 04/25/2013 DX:History of vitamin D deficiency; COMMENT: Vitamin D = 11 Anemia DX:Anemia Anxiety state DX:Anxiety state Venereal disease DX:Venereal dis ease Heart palpitations 2015 DX:Heart palp itations; COMMENT: needs to see superintendent division for further evaluation Family History Medical History Relation Name Comments No Known Problems Father unknown Alcohol/Drug Maternal Grandfather Breast cancer Maternal Grandmother Migraines Mother Ovarian cancer Mother Seizures Mother No Known Problems Paternal Grandfather No Known Problems Paternal Grandmother Other: Other Sister 1 scoloiosis, mat ernal half sister No Known Problems Sister 2 maternal h shraddha sister No Known Problems Sister 3 maternal h snf sister Depression Sister 4 Cervical cancer Neg Hx Uterine cancer Neg Hx Relation Name Status Comments Brother Alive Father Other Maternal Grandfather Maternal Grandmother Alive Mother Alive Paternal Grandfather Other Paternal Grandmother Other Sister 1 Alive Sister 2 Alive Sister 3 Alive Sister 4 Alive Social History Tobacco Use Types Packs/Day Years Used Date Smoking Tobacco: Every Day Cigarettes Smokeless Tobacco: Never Alcohol Use Standard Drinks/Week Comments No 0 (1 standard drink = 0.6 oz pur e alcohol) Comments Unknown Sex and Gender Information Value Date Recorded Sex Assigned at Not on file Legal Sex Female 8:46 AM EST Gender Identity Not on file Sexual Orientation Not on file Obstetrics History Last Filed Vital Signs Vital Sign Reading Time Taken Comments Blood Pressure 112/74 07/01/2022 9:46 AM EST Pulse 100 07/01/2022 9:46 AM EST Temperature - - Respiratory Rate - - Oxygen Saturation - - Inhaled Oxygen Concentration - - Weight 64.7 kg (142 lb 9.6 oz) 07/01/2022 9:46 A M EST Height 165.1 cm (5' 5 ) 07/01/2022 9:46 AM EST Body Mass Index 23.73 07/01/2022 9:46 AM EST Plan of Treatment Health Maintenance Due Date Last Done Comments Hepatitis B Vaccines (1 of 3 - 19+ 3-dose series) 2008 Pneumococcal Vaccine: Pediatrics (0 to 5 Years) and At-Risk Patients (6 to 64 Years) (1 of 2 - PCV) 2008 Depression Screening 07/03/2022 HIV Screening 07/03/2022 Hepatitis C Screening 07/03/2022 Social Influencers of Health Screening 07/03/2022 COVID-19 Vaccine ( - 2023-2 5 season) 2024 Cervical Cancer Screening: P ap Smear 11/19/2024 11/19/2021, 03/17/2018, 03/17/2018 Influenza Vaccine (Season Ended) 2025 DTaP,Tdap,and Td Vaccines (3 - Td or Tdap) 02/26/2030 02/27/2020, 06/29/2016 HIB Vaccines Aged Out No longer eligi ble based on patient's age to complete this topic HPV Vaccines Aged Out No longer eligi ble based on patient's age to complete this topic Hepatitis A Vaccines Aged Out No long er eligible based on patient's age to complete this topic IPV Vaccines Aged Out No longer eligi ble based on patient's age to complete this topic MMR Vaccines Aged Out No longer eligi ble based on patient's age to complete this topic Meningococcal ACWY Vaccine Aged Out N o longer eligible based on patient's age to complete this topic Meningococcal B Vaccine Aged Out No l onger eligible based on patient's age to complete this topic RSV Immunization Patients Under 20 months Aged Out No longer eligible b ased on patient's age to complete this topic Varicella Vaccines Aged Out No longer eligible based on patient's age to complete this topic Procedures Procedure Name Priority Date/Time Associated Diagnosis Comments PAP SMEAR Routine 11/19/2021 from Last 3 Months or Most Recently Relevant to Health Maintenance Results * Pap smear (11/19/2021) 11/19/2021 Narrative HISTORICAL TESTING LAB RESULTING AGENCY - 12/08/2021 7:25 AM EDT [id number] THINPREP PAP, IMAGED: NEGATIVE FOR SQUAMOUS INTRAEPITHELIAL LESION AND MALIGNANCY. NOTE: THE PAP TEST IS A SCREENING TEST WITH AN INHERENT FALSE NEGATIVE RATE. AUTOMATED PRESCREENING OF ALL LIQUID BASED SPECIMENS IS PERFORMED BY THE THINPREP IMAGING SYSTEM UNLESS OTHERWISE STATED. AVE BLANKENSHIP(ASCP) (CASE ELECTRONICALLY SIGNED 12 07 2021) RESULT OF APTIMA HIGH RISK HPV ASSAY: HIGH RISK HPV: ??NEGATIVE (SEROTYPES 16,18,31,33,35,39,45,51,52,56,58,59,66,68) COMPLETED ON 2021-11-20 ADEQUACY: SATISFACTORY ENDOCERVICAL/TRANSFORMATION ZONE COMPONENT PRESENT. SOURCE: THINPREP PAP HPV ANY DX: ??REFLEX 16 AND 18, CERVICAL, IMAGED CLINICAL INFORMATION: HPV ANY DIAGNOSIS. 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
[2024-11-19 18:26] LABS: D Dimer High Sensitivity 221 NG/ML
[2024-11-19 18:43] LABS: CT PCR NOT DETECTED (Not Detect.); NG PCR NOT DETECTED (Not Detect.)
[2024-11-19 20:13] VITALS: BP 94/67; PULSE 87; RESP 16; TEMP 36.8; O2SAT 100
[2024-11-19 21:54] VITALS: BP 96/66; PULSE 83; RESP 17; TEMP 36.8; O2SAT 100
== END 2024-11-19 21:54 | disposition home or self-care (01) ==
PROVIDERS: Physician Assistant; Emergency Provider Emergency Medicine Emergency Medical Services
DX: I49.9 Cardiac arrhythmia, unspecified (principal); U07.1 COVID-19; R25.2 Cramp and spasm; R00.0 Tachycardia, unspecified; Z79.899 Other long term (current) drug therapy
CPT/HCPCS: 0241U; 36415; 76801; 80053; 81515; 83690; 83735; 84443; 84484; 84702; 85025; 85379; 87491; 87591; 93005; 99284

== ENCOUNTER → 2024-11-19 14:18 | Outpatient (BNV) | payer MEDICAID, SELFPAY | PROVIDERS: Emergency Provider Emergency Medicine Emergency Medical Services; Visit Provider Internal Medicine Cardiovascular Disease | DX: I47.10 Supraventricular tachycardia, unspecified (principal) | CPT/HCPCS: 93010 ==

== ENCOUNTER → 2024-11-19 15:31 | Outpatient (BNV) | payer MEDICAID, SELFPAY | PROVIDERS: Emergency Provider Emergency Medicine Emergency Medical Services; Visit Provider Radiology Diagnostic Radiology | DX: O99.611 Diseases of the digestive system complicating pregnancy, first trimester (principal); Z3A.10 10 weeks gestation of pregnancy | CPT/HCPCS: 76801 ==

== ENCOUNTER 2024-12-19 08:01 | Emergency (ER) | payer MEDICAID, SELFPAY ==
--- NOTE | ~2024-12-19 | US_ITS ---
EXAMINATION: US , LIMITED CLINICAL INFORMATION: Lower abdominal pain. 3 months . COMPARISON: 11/11/2024. Estimated delivery date = 06/11/2025. TECHNIQUE: Grayscale and color Doppler ultrasound imaging of the pelvis utilizing transabdominal technique only. FINDINGS: Please note this is not a full survey. This is for gross viability only. Viable intrauterine gestation, with positive heart rate of 140 bpm, positive motion, an estimated gestational age based on measurements of 15 weeks and 0 days based on femur length. The placenta is posteriorly positioned. No previa. No abruption. Normal-appearing amniotic fluid volume. There are no adnexal masses. There is no free pelvic fluid. The right ovary measures 3.7 x 2.5 x 2.7 cm. There is a normal follicular cyst measuring 2.1 x 2.5 x 2.1 cm. Left ovary measures 3.2 x 1.6 x 2.3 cm. Normal sonographic appearance. US/US OB limited IMPRESSION: 1. Viable 15 week gestation, with heart rate of 140 bpm and positive motion. No complication evident. Electronically signed by: Troy Aaron MD 12/19/2024 09:49 AM EDT
[2024-12-19 08:12] VITALS: BP 110/58; PULSE 81; RESP 16; TEMP 36.9; O2SAT 100; BMI 24.8
--- NOTE | 2024-12-19 08:14 | ED.FEMALEGU ---
HPI - Female Genitourinary General Chief complaint: OB Stated complaint: Abd pain - pt is Time Seen by Provider: 12/19/24 09:54 Source: patient Mode of arrival: ambulatory Limitations: no limitations History of Present Illness ED Provider: Yeimy Gannon PA-C HPI Narrative: 34 year old female who is , currently , with a past medical history of SVT presents to the ED with a chief complaint of RLQ and suprapubic abdominal pain that radiates to her back. Patient states that the pain began 1 week ago and has worsened over the past 3 days. She reports that she has yellow vaginal discharge, but denies any blood present. Patient denies itching or pain within her vagina. She reports that her pain worsens while standing, she has taken tylenol for the pain but it has not improved. Patient denies having a similar episode in her other pregnancies. Patient denies any new sexual partners. Patient denies shortness of breath, dizziness, palpitations, or new aches in her extremities. Patient has an appointment with [facility] tomorrow (12/20/2024). MD elicited complaint: vaginal discharge Onset (ago): day(s) Location of symptoms: suprapubic and RLQ Vaginal discharge: yellow Vaginal bleeding: none Associated symptoms: denies other symptoms Treatment prior to arrival: acetaminophen Patient : Yes Related Data Previous Rx's ?Medication ?Instructions ?Recorded acetaminophen 500 mg tablet 1,000 mg (2 x 500 mg) PO QID PRN 07/25/20 (Tylenol Extra Strength) fever or pain #14 tabs azithromycin 250 mg tablet See Rx Instructions PO .COMPLEX #6 07/25/20 tabs cyclobenzaprine 10 mg tablet 10 mg PO TID PRN mucle spasm #20 08/17/22 tabs ibuprofen 800 mg tablet 800 mg PO TID PRN pain #30 tabs 08/17/22 metoprolol succinate 25 mg 25 mg PO DAILY #30 tabs 01/11/24 tablet,extended release 24 hr (Toprol XL) amoxicillin 500 mg tablet 500 mg PO BID #20 tabs 04/13/24 ondansetron 4 mg disintegrating 4 mg PO Q8H PRN nausea and 04/13/24 tablet vomiting #20 tabs vitamins no.159-iron 1 tab PO DAILY #30 tabs 04/28/25 fumarate 28 mg-folic acid 800 mcg tablet ( Vitamin) Allergies Allergy/AdvReac Type Severity Reaction Status Date / Time No Known Allergies Allergy Verified 12/19/24 08:15 [No Known Allergies*] Review of Systems Constitutional: Constitutional: Reports no additional constitutional complaints, Denies chills, Denies fever(s) and Denies night sweats Eyes: Eyes: Reports no additional eye complaints, Denies blurry vision, Denies change in vision, Denies diplopia, Denies eye discharge, Denies loss of vision and Denies eye pain ENT: Denies dizziness Cardiovascular: Cardiovascular: Reports no additional cardiovascular complaints, Denies chest pain, Denies lightheadedness, Denies Loss of Consciousness and Denies dyspnea Respiratory: Respiratory: Reports no additional respiratory complaints and Denies dyspnea Gastrointestinal: Gastrointestinal: Reports no additional gastrointestinal complaints, Reports abdominal pain, Denies melena, Denies hematochezia, Denies change in bowel habits, Denies change in stool character and Reports nausea Genitourinary: Genitourinary: Denies hematuria, Denies urinary frequency, Denies dysuria, Denies urinary incontinence, Denies urinary hesitancy, Denies urinary urgency, Reports vaginal discharge and Denies vaginal pruritus Comments: yellow vaginal discharge Musculoskeletal: Musculoskeletal: Reports no additional musculoskeletal complaints, Denies numbness and Denies tingling Neurologic: Denies dizziness, Denies loss of vision, Denies numbness and Denies tingling Psychiatric: Psychiatric: Reports no additional psychiatric complaints Endocrine: Endocrine: Reports no additional endocrine complaints Hematologic/Lymphatic: Hematologic/Lymphatic: Reports no additional hematologic/lymphatic complaints Allergic/Immunologic: Allergic/Immunologic: Reports no additional allergic/immunologic complaints [facility] Past Medical History Attestation statement: The following information was validated with the patient. Source: old records reviewed and nursing notes reviewed Medical History SVT (supraventricular tachycardia) Social History Social History Alcohol intake: never Smoked in Last 30 Days: No Use of substances other than those prescribed or required for medical reasons: No Advance Directives: No Advance Directives Information Provided: Yes Do you have a plan to hurt others: No Plan Patient : Yes Physical Exam Vital Signs: Vital Signs: Last Vital Signs Temp 98.4 F 12/19/24 10:50 Pulse 86 12/19/24 10:50 Resp 16 12/19/24 10:50 BP 115/60 12/19/24 10:50 Pulse Ox 99 12/19/24 10:50 O2 Del Method Room Air 12/19/24 10:50 BMI result Body Mass Index 24.8 Const: General: cooperative, no acute distress, alert and awake Nutritional Appearance: well nourished Orientation/consciousness: patient oriented x3 HEENT: Head: Yes normal to inspection and Yes atraumatic Ears: hearing grossly normal bilaterally and external ears normal General nose exam: Normal external nose present, no nasal discharge noted and no epistaxis Face and sinus: Yes normal facial exam, No abrasion and No laceration Mouth: Normal oral and palatal mucosa present, no drooling and no muffled voice Eyes: General: appearance normal, both eyes and all related structures Periorbital: periorbital findings normal Eyelids: Yes eyelids normal Conjunctivae: conjunctivae normal Pupils: Equal, round and reactive pupils present EOM: EOMs intact bilaterally Neck: Neck: Yes normal visual inspection, Yes full ROM and Yes no lymphadenopathy Resp: Effort & Inspection: normal respiratory effort and able to speak in complete sentences GI: Inspection: Yes normal to inspection Palpation (GI): Tenderness to palpation present (GI) Neuro: General: patient oriented x3, moves all extremities and CN's II-XI intact bilaterally Cranial nerves: Yes Equal, round and reactive pupils present Cognition (Neuro): normal cognition Extrem: General: Yes normal to inspection, Yes full ROM and Yes capillary refill normal Psych: Appearance: grossly normal Mental Status: mental status grossly normal Affect: normal affect Attitude: cooperative Thought process: Normal thought process present Thought content: Normal thought content present Insight: Good insight present (Psych) Course Course Course Narrative: 34 yo female , SVT, no prior surgery, tonsillectomy here with c/o 3 days of pelvic pain and some discharge. No fevers, vomiting, diarrhea, pain across entire low abdomen with pulling on R side. No vaginal bleeding. At this time will obtain labs, UA, pelvic US this is a RAPID medical screening exam the rest of the history and physical exam is to be done by the main provider. LUPILLO 12/19/24 816am Medical Decision Making Medical Decision Making MDM Narrative: Patient is a 34 year old assigned female at with a history of - currently and SVT presents to the ED with a chief complaint of RLQ and suprapubic abdominal pain that radiates to her back. Patient's physical exam was unremarkable. Patient's blood work was unremarkable. Patient's urine showed no acute process. Patient's US showed no acute process as well as a normal fetus at 15 weeks with normal FHT. I explained my physical exam findings as well as all test results to the patient. I answered all questions asked by the patient. I stressed the importance of the patient taking her medication as directed (either prescribed or as the over the counter packaging recommends). I stressed the importance of the patient following up with her primary care provider and your OBGYN as scheduled on 12/20/2024. I stressed the importance of the patient returning to the emergency department immediately if her symptoms were to worsen or if she were to develop any dizziness, shortness of breath, difficulty breathing, chest pain, blurry vision, loss of vision, nausea, vomiting, abdominal pain, fever, chills, back pain, or any other complaints. Patient verbalized agreement and understanding with this treatment plan and discharge. Differential Diagnosis Differential Diagnoses: The differential diagnosis associated with the presentation includes Abdominal pain Vaginal discharge UTI Admission/Observation Consideration of admission/observation: Escalation of care including admission/observation considered Patient would have been admitted to the hospital had her work up had any findings where hospital admission was appropriate and her clinical presentation warranted hospital admission. Lab Data [facility] Lab Attestation statement: I reviewed the patient's lab results. My interpretation of these results are in the [facility] Rationale portion of this note. 12/19/24 08:29 12/19/24 08:29 Labs: Lab Results 12/19/24 12/19/24 Range/Units 08:29 10:32 WBC 6.5 (4.8-10.8) X10*3/uL RBC 3.39 L (4.20-5.50) X10*6/uL Hgb 10.9 L (12.0-16.0) g/dl Hct 30.8 L (37.0-47.0) % MCV 90.9 (80.0-98.0) fL MCH 32.2 (27.0-33.0) pg MCHC 35.4 H (31.0-35.0) g/dl RDW 13.7 (11.0-16.0) % Plt Count 181 (160-400) X10*3/uL MPV 10.8 (9.4-12.3) fL Immature Gran % (Auto) 0.5 H (0.0-0.4) % Neut % (Auto) 59.5 (45-73) % Lymph % (Auto) 26.2 (20-40) % Walker % (Auto) 8.3 (2-11) % Eos % (Auto) 5.2 H (0-4) % Baso % (Auto) 0.3 (0-2) % Lymph # (Auto) 1.7 (1.2-4.9) X10*3/uL Walker # (Auto) 0.5 (0.1-1.2) X10*3/uL Eos # (Auto) 0.3 (0.0-0.4) X10*3/uL Baso # (Auto) 0.0 (0.0-0.2) X10*3/uL Abs Immat Gran (auto) 0.03 (0.00-0.03) X10*3/uL Absolute Neuts (auto) 3.9 (2.0-8.3) x10*3/uL Absolute Nucleated RBC 0.000 (0.0-0.012) X10*3/uL Nucleated RBC % (auto) 0.0 (0.0-0.2) /100WBC Sodium 137 (135-145) mmol/L Potassium 3.8 (3.3-5.1) mmol/L Chloride 107 (96-108) mmol/L Carbon Dioxide 24 (22-29) mmol/L Anion Gap 10 L (12-20) BUN 6 L (9-16) mg/dL Creatinine 0.42 L (0.5-1.4) mg/dL Estim Creat Clear Calc 168.2 Estimated GFR > 60 Random Glucose 82 (60-115) mg/dL Calcium 8.6 (8.4-10.2) mg/dL Total Bilirubin 0.4 (0.0-1.0) mg/dL Direct Bilirubin 0.1 (0.0-0.5) mg/dL AST 31 (5-31) U/L ALT 23 (0-31) U/L Alkaline Phosphatase 45 (39-117) U/L Total Protein 6.6 (6.5-8.0) g/dL Albumin 3.9 (3.5-5.0) g/dL Lipase 15 (8-78) U/L Urine Color Yellow Urine Appearance Clear Urine pH 8.5 (5.0-9.0) Ur Specific [place] 1.010 (1.005-1.025) Urine Protein Negative (Neg-Trace) mg/dL Urine Glucose (UA) Negative (Negative) mg/dL Urine Ketones Negative (Negative) mg/dL Urine Blood Negative (Negative) Urine Nitrite Negative (Negative) Ur Leukocyte Esterase Negative (Negative) Chlam trachomat DNA PCR NOT DETECTED (Not Detect.) N.gonorrhoeae DNA (PCR) NOT DETECTED (Not Detect.) T. vaginalis (PCR) NOT DETECTED (Not Detect) Bact vaginosis (PCR) NEGATIVE (Negative) C. krusei/glabrata (PCR) NOT DETECTED (Not Detect) Steph group (PCR) NOT DETECTED (Not Detect) Independent Interpretation I performed an independent interpretation of an: Ultrasound Interpretation: My interpretation is in agreement with the radiologist's impression of this imaging study. EXAMINATION: US , LIMITED CLINICAL INFORMATION: Lower abdominal pain. 3 months . COMPARISON: 11/11/2024. Estimated delivery date = 06/11/2025. TECHNIQUE: Grayscale and color Doppler ultrasound imaging of the pelvis utilizing transabdominal technique only. FINDINGS: Please note this is not a full survey. This is for gross viability only. Viable intrauterine gestation, with positive heart rate of 140 bpm, positive motion, an estimated gestational age based on measurements of 15 weeks and 0 days based on femur length. The placenta is posteriorly positioned. No previa. No abruption. Normal-appearing amniotic fluid volume. There are no adnexal masses. There is no free pelvic fluid. The right ovary measures 3.7 x 2.5 x 2.7 cm. There is a normal follicular cyst measuring 2.1 x 2.5 x 2.1 cm. Left ovary measures 3.2 x 1.6 x 2.3 cm. Normal sonographic appearance. US/US OB limited IMPRESSION: 1. Viable 15 week gestation, with heart rate of 140 bpm and positive motion. No complication evident. Electronically signed by: Troy Aaron MD 12/19/2024 09:49 AM EDT RP Dictated By: Troy Aaron MD Signed By: Electronically signed by Troy Aaron MD 12/19/24 0949 Radiology Impression Discussion of test interpretation with radiology: I have reviewed the radiologist's reading. Discharge Plan Discharge Clinical Impression: Patient Disposition: Home, Self-Care Instructions: at 15 to 18 Weeks (ED) Additional Instructions: Follow up with your OBGYN tomorrow as scheduled. Follow up with your primary care provider. Return to the emergency department immediately if your symptoms worsen or if you develop any numbness, tingling, dizziness, shortness of breath, difficulty breathing, chest pain, blurry vision, loss of vision, nausea, vomiting, abdominal pain, fever, chills, back pain, or any other complaints. Please see the information below about our Patient Portal. If you are not yet enrolled in the [facility] Patient Portal, you will receive an enrollment email invitation following your visit to any [facility] [place] care setting. You may also self-enroll in the Patient Portal by visiting our website: [email or web address] The following information is required to access the Patient Portal: - Your [facility] [place] - Your personal home email address (must match what is in your electronic medical record, Registration staff can assist with this) - Name - Date of Capabilities of the Patient Portal: - Message some providers - View upcoming appointments - Access your health summary, medical history, and visit history - View current conditions and allergies - View procedure and lab results - View your medications, including guidelines, side effects, and precautions - Complete pre-appointment questionnaires requested by your provider - Ready summary reports of your office visits and procedures To access the Patient Portal Mobile Tiana, follow these directions: - Search [employer] in the Tiana Store or Google Forrst Store - Download the Tiana - Search for [facility] - Enter your login/password Prescriptions: No Action acetaminophen [Tylenol Extra Strength] 500 mg tablet 1,000 mg PO QID PRN (Reason: fever or pain) Qty: 14 0RF azithromycin 250 mg tablet See Rx Instructions .ROUTE .COMPLEX Qty: 6 0RF Rx Instructions: take 500 mg today (day 1), then 250 mg for 4 days (days 2-5) ondansetron 4 mg tablet,disintegrating 4 mg PO Q8H PRN (Reason: nausea and vomiting) Qty: 20 0RF amoxicillin 500 mg tablet 500 mg PO BID Qty: 20 0RF metoprolol succinate [Toprol XL] 25 mg tablet extended release 24 hr 25 mg PO DAILY Qty: 30 2RF Vitamin 28 mg iron- 800 mcg tablet 1 tab PO DAILY Qty: 30 0RF cyclobenzaprine 10 mg tablet 10 mg PO TID PRN (Reason: mucle spasm) Qty: 20 0RF ibuprofen 800 mg tablet 800 mg PO TID PRN (Reason: pain) Qty: 30 0RF Referrals: [facility] [place] [Provider Group] (Call to establish and follow up with a primary care provider. If you already have a primary care provider, please follow up with them.) [facility] [place] Care, [facility] [Provider Group] (Call to establish and follow up with a primary care provider. If you already have a primary care provider, please follow up with them.) [facility] [place] Care[place] [Provider Group] (Call to establish and follow up with a primary care provider. If you already have a primary care provider, please follow up with them.) [facility] [place] Care, SHAMAR [Provider Group] (Call to establish and follow up with a primary care provider. If you already have a primary care provider, please follow up with them.) [facility] [place] Care[place]ared [Provider Group] (Call to establish and follow up with a primary care provider. If you already have a primary care provider, please follow up with them.) Stand Alone Forms: Work/School Release Interventions: ED Discharge Assessment Last Done: 12/19/24 10:50 Discharge Date/Time: 12/19/24 10:52 Print Language: Thai
[2024-12-19 08:39] LABS: MANUAL DIFF FLAG NO
[2024-12-19 08:41] LABS: Appearance Urine Clear; Color Urine Yellow; Glucose Urine UA Negative (Negative); Leukocyte Esterase Urine Negative (Negative); Nitrite Urine Negative (Negative); PH 8.5 (5.0-9.0); Urine Blood Negative (Negative); Urine Ketones Negative (Negative); Urine Protein Negative (Neg-Trace)
[2024-12-19 08:42] LABS: Basophils Percent Auto 0.3 % (0-2); Eosinophils Absolute Auto 0.3 X10*3/uL (0.0-0.4); Eosinophils Percent Auto 5.2 % (0-4); Hematocrit 30.8 % (37.0-47.0); Hemoglobin 10.9 g/dl (12.0-16.0); Imm Gran Abs Auto 0.03 X10*3/uL (0.00-0.03); Imm Gran Pct Auto 0.5 % (0.0-0.4); Lymphocytes Absolute Auto 1.7 X10*3/uL (1.2-4.9); Lymphocytes Percent Auto 26.2 % (20-40); Mean Corpuscular HGB Conc 35.4 g/dl (31.0-35.0); Mean Corpuscular Hemoglobin 32.2 pg (27.0-33.0); Mean Corpuscular Volume 90.9 fL (80.0-98.0); Mean Platelet Volume 10.8 fL (9.4-12.3); Monocytes Absolute Auto 0.5 X10*3/uL (0.1-1.2); Monocytes Percent Auto 8.3 % (2-11); Neutrophils Absolute Auto 3.9 x10*3/uL (2.0-8.3); Neutrophils Percent Auto 59.5 % (45-73); Platelet Count 181 X10*3/uL (160-400); Red Blood Count 3.39 X10*6/uL (4.20-5.50); Red Cell Distribution Width 13.7 % (11.0-16.0); White Blood Count 6.5 X10*3/uL (4.8-10.8)
[2024-12-19 09:08] LABS: Alanine Aminotransferase 23 U/L (0-31); Albumin Level 3.9 g/dL (3.5-5.0); Alkaline Phosphatase 45 U/L (39-117); Anion Gap 10 (12-20); Aspartate Amino Transferase 31 U/L (5-31); Bilirubin Direct 0.1 mg/dL (0.0-0.5); Bilirubin Total 0.4 mg/dL (0.0-1.0); Blood Urea Nitrogen 6 mg/dL (9-16); Calcium 8.6 mg/dL (8.4-10.2); Carbon Dioxide 24 mmol/L (22-29); Chloride 107 mmol/L (96-108); Creatinine Clr Calc Pharmacy 168.2; Estimated Glomerular Filt Rate > 60; Glucose Random 82 mg/dL (60-115); Lipase 15 U/L (8-78); Potassium 3.8 mmol/L (3.3-5.1); Sodium 137 mmol/L (135-145); Total Protein 6.6 g/dL (6.5-8.0)
--- OUTSIDE RECORDS SUMMARY | 2024-12-19 10:02 | XMS_ITS | Clinical Summary ---
Author Organization [facility] ity Address [address] [place] [address] Care Team Providers Care Feedlot Manager Name Role Phone Hal Ansari MD Primary Care Provider [phone] Surgical History Surgery Date Site/Laterality Comments OTHER SURGICAL HISTORY 2001 PROCEDURE: MD TONSILLECTOMY PRIMARY/SECONDARY AGE 11/> Medical History Medical History Date Comments Depression 11/26/2015 DX:Depression Sickle cell trait ([facility] V24) 11/05/2013 DX:Sickle cell trait ([facility]) History of chlamydia 08/26/2008 DX:History of chlamydia History of anemia 05/31/2016 DX:History of anemia; COMMENT: H&H 10.4 / 30.9 History of colposcopy 01/23/2016 DX:History of colposcopy; COMMENT: negative ASCUS with positive high ris k HPV cervical 12/04/2015 DX:ASCUS with positive high risk HPV cervical Supraventricular tachycardia ([facility] V24) 08/02/2016 DX:Supraventricular tachycar peyman ([facility]); COMMENT: Sees billet assembler Lindsay History of anxiety 11/08/2013 DX:History of anxiety Asthma 04/25/2013 DX:Asthma History of urinary tract infection 11/05/2013 DX:History of urinary tract infection History of vitamin D deficiency 04/25/2013 DX:History of vitamin D deficiency; COMMENT: Vitamin D = 11 Anemia DX:Anemia Anxiety state DX:Anxiety state Venereal disease DX:Venereal dis ease Heart palpitations 2015 DX:Heart palp itations; COMMENT: needs to see billet assembler for further evaluation Family History Medical History [...] No Known Problems Sister 3 maternal h nursing home sister Depression Sister 4 Cervical cancer Neg [...] 07/01/2022 9:46 AM EST Plan of Treatment Upcoming Encounters Date Type Department Care Team (Late st Contact Info) Description 12/20/2024 11:00 AM EDT Clinical Support Obstetrics and Gynecology [address] [phone] Health Maintenance Due Date Last Done Comments Hepatitis A Vaccines (1 of 2 - Risk 2-dose series) 2008 Hepatitis B Vaccines (1 of 3 - 19+ 3-dose series) 2008 Pneumococcal Vaccine: Pediatrics (0 to 5 Years) and At-Risk Patients (6 to 64 Years) (1 of 2 - PCV) 2008 Depression Screening 07/03/2022 HIV Screening 07/03/2022 Hepatitis C Screening 07/03/2022 Social Influencers of Health Screening 07/03/2022 COVID-19 Vaccine (1 - 2023-2 5 season) 2024 Cervical Cancer [...] RESULTING AGENCY - 12/08/2021 7:25 AM EDT [id number] THINPREP PAP, IMAGED: NEGATIVE FOR SQUAMOUS INTRAEPITHELIAL [...] HORMONES, PAP HX NEGATIVE 2018, [Z01.419] Esha Coreas [facility] CYTOLOGY ORDERABLES Final Result HISTORICAL TESTING LAB RESULTING AGENCY from Last 3 Months or Most Recently Relevant to Health Maintenance Insurance [place] [address] [employer] Care Teams Feedlot Manager Relationship Specialty Start Date End Date Hal Ansari MD [address] [place] [address] Dr Reyes [address] [place] [address] [place] PCP - General 11/07/19
[2024-12-19 10:50] VITALS: BP 115/60; PULSE 86; RESP 16; TEMP 36.9; O2SAT 99
[2024-12-19 11:51] LABS: Bacterial Vaginosis PCR NEGATIVE (Negative); Candida Group PCR NOT DETECTED (Not Detect); Candida glab krusei PCR NOT DETECTED (Not Detect); Trichomonas vaginalis PCR NOT DETECTED (Not Detect)
[2024-12-19 12:19] LABS: CT PCR NOT DETECTED (Not Detect.); NG PCR NOT DETECTED (Not Detect.)
== END 2024-12-19 10:52 | disposition home or self-care (01) ==
PROVIDERS: Physician Assistant Medical; Emergency Provider Emergency Medicine
DX: O26.892 Other specified pregnancy related conditions, second trimester (principal); R10.30 Lower abdominal pain, unspecified; Z3A.15 15 weeks gestation of pregnancy
CPT/HCPCS: 36415; 76815; 80048; 80076; 81003; 81515; 83690; 85025; 87491; 87591; 99284

== ENCOUNTER → 2024-12-19 08:13 | Outpatient (BNV) | payer MEDICAID, SELFPAY | PROVIDERS: Visit Provider Radiology Diagnostic Radiology | DX: O26.892 Other specified pregnancy related conditions, second trimester (principal); R10.30 Lower abdominal pain, unspecified; Z3A.15 15 weeks gestation of pregnancy | CPT/HCPCS: 76815 ==

== ENCOUNTER 2025-04-17 09:12 | Emergency (ER) | payer OTHER, SELFPAY ==
--- NOTE | 2025-04-17 | ECG_ITS ---
Test Reason : SVT Blood Pressure : */* mmHG Vent. Rate : 107 BPM Atrial Rate : 107 BPM P-R Int : 118 ms QRS Dur : 80 ms QT Int : 334 ms P-R-T Axes : 58 65 13 degrees QTcB Int : 445 ms Sinus tachycardia Possible Left atrial enlargement Nonspecific ST abnormality Abnormal ECG When compared with ECG of 19-Nov-2024 14:19, Sinus rhythm has replaced Wide QRS tachycardia Referred By: Generic ED Physician Electronically Signed By: Koffi Guzman
[2025-04-17 09:26] VITALS: BP 111/71; PULSE 113; RESP 18; TEMP 36.7; O2SAT 100; BMI 32.1
--- NOTE | 2025-04-17 09:36 | ED_ITS ---
HPI - Arrhythmia/Palpitations General Chief Complaint: Arrhythmia/Palpitations Stated Complaint: SVT? Time Seen by Provider: 04/17/25 09:25 Source: patient Mode of arrival: ambulatory Limitations: no limitations History of Present Illness ED Provider: DR. Colin HPI narrative: 35-year-old female history of SVT controlled with metoprolol 25 mg daily patient ran out metoprolol, patient is 33 weeks today patient is monitored closely for placenta previa in this scheduled to have ultrasound by her Ob next week, presented today with SVT and palpitation while she was working, patient is very familiar with her condition that usually breaks with 2 doses of adenosine, patient is scheduled to have ablation after labor of this . No lower extremity swelling or tenderness, no chest pain, no shortness of breath patient just feel regular palpitation that is typical for her symptoms. Related Data Previous Rx's ?Medication ?Instructions ?Recorded acetaminophen 500 mg tablet 1,000 mg (2 x 500 mg) PO Q ID PRN 07/25/20 (Tylenol Extra Strength) fever or pain #14 tabs azithromycin 250 mg tablet See Rx Instructions PO .COM PLEX #6 07/25/20 tabs cyclobenzaprine 10 mg tablet 10 mg PO TID PRN mucle sp asm #20 08/17/22 tabs ibuprofen 800 mg tablet 800 mg PO TID PRN pain #30 t abs 08/17/22 metoprolol succinate 25 mg 25 mg PO DAILY #30 tabs tablet,extended release 24 hr (Toprol XL) amoxicillin 500 mg tablet 500 mg PO BID #20 tabs 04/13 ondansetron 4 mg disintegrating 4 mg PO Q8H PRN nausea and 04/13/24 tablet vomiting #20 tabs vitamins no.159-iron 1 tab PO DAILY #30 tabs 11/19/24 fumarate 28 mg-folic acid 800 mcg tablet ( Vitamin) metoprolol succinate 25 mg 25 mg PO DAILY #20 tabs tablet,extended release 24 hr (Toprol XL) Allergies Allergy/AdvReac Type Severity Reaction Status Date / Time No Known Allergies (No Known Allergy Verified 04/17/25 09:28 Allergies*) Review of Systems 2 Review of Systems: All other systems are reviewed and are negative Constitutional: Reports as per HPI and Reports no additional constitutional complaints Eyes: Reports as per HPI and Reports no additional eye complaints Reports system reviewed and no additional complaints, except as documented Cardiovascular: Reports as per HPI and Reports no additional cardiovascular complaints Respiratory: Reports as per HPI and Reports no additional respiratory complaints Gastrointestinal: Reports as per HPI and Reports no additional gastrointestinal complaints Genitourinary: Reports no additional female genitourinary complaints Musculoskeletal: Reports no additional musculoskeletal complaints Skin/Breast: Reports system reviewed and no additional complaints, except as docu Psychiatric: Reports no additional psychiatric complaints Endocrine: Reports no additional endocrine complaints Hematologic/Lymphatic: Reports no additional hematologic/lymphatic complaints Allergic/Immunologic: Reports no additional allergic/immunologic complaints Reports system reviewed and no additional complaints, except as documented and Reports Abnormal speech present [facility], [facility] Past Medical History Medical History SVT (supraventricular tachycardia) Social History Social History Alcohol intake: never Advance Directives: No Advance Directives Information Provided: Yes Do you have a plan to hurt others: No Plan Physical Exam 2 Vital Signs: Vital Signs: Last Vital Signs Temp 98.1 F 04/17/25 11:24 Pulse 105 H 04/17/25 11:24 Resp 18 04/17/25 11:24 BP 106/69 04/17/25 11:24 Pulse Ox 99 04/17/25 11:24 O2 Del Method Room Air 04/17/25 11:24 BMI result Body Mass Index 32.1 Vital signs have been reviewed and appear to be correct. Blood pressure elevated. Heart rate elevated, Respiratory rate normal. Temperature normal. Oxygen saturation normal. Appearance: Alert. Oriented X3. No acute distress. Head: Normal external exam. Normocephalic. Atraumatic. No Alvarado signs noted. No raccoon eyes noted Eyes: PERRLA. EOMI. Conjunctiva and sclera normal. Eyelids normal. ENT: TM's Normal. Pharynx normal. Uvula midline. Moist mucous membranes. No trismus noted. No drooling noted. No muffled voice noted. Neck: Normal inspection. Neck supple. FROM. No adenopathy. Thyroid Normal. No meningeal signs. No neck mass noted. CVS: Normal heart rate and rhythm. Heart sound normal. No murmurs noted. Pulses normal throughout. Respiratory: No respiratory distress. Painless inspiration. Breath sounds normal. No wheezes/rales/rhonchi noted. Chest nontender. No accessory muscle usage noted or decreased air movement noted. Abdomen: Soft and nontender. Bowel sounds normal in all 4 quadrants. No distention noted. No organomegaly noted. No visible injury noted. Back: No CVA tenderness. Full range of motion noted. Skin: Skin warm and dry. Normal skin color. Normal skin turgor. No rashes/lesions/lacerations noted. Extremities: No lower extremity edema. Extremities exhibit normal range of motion. Extremities nontender. Neuro: Oriented X 3. Cranial nerve exam: II-XII are grossly intact No motor deficit. No sensory deficit. Reflexes normal. Course Reevaluation(s) Reevaluation #1: Sinus tachycardia, no CP, no SOB, O2 sat is 99% with normal respiratory rate, patient with history of SVT in the past patient is a metoprolol that she ran out of and has not had metoprolol for the past 2, no vaginal bleed, no vaginal discharge. Will reassure will discharge on metoprolol. Time: 13:28 Medications Administered Discontinued Medications Generic Name Dose Route Start Last Admin Trade Name Freq PRN Reason Stop Dose Admin Lactated Ringer's 1,000 mls @ 999 mls/hr 04/17/25 09:45 04/17/25 11:15 Lr IV 04/17/25 10:45 Infused .Q1H1M MAETO Infusion Medical Decision Making Differential Diagnosis Differential Diagnoses: The differential diagnosis associated with the presentation includes (SVT, sinus tachycardia, atrial tachycardia, pulmonary embolism, electrolyte derangement, severe anemia.) Admission/Observation Consideration of admission/observation: Escalation of care including admission/observation considered Lab Data MDM Lab Attestation statement: I reviewed the patient's lab results. 04/17/25 09:45 04/17/25 09:45 Labs: Lab Results 04/17/25 Range/Units 09:45 WBC 7.5 (4.8-10.8) X10*3/uL RBC 3.53 L (4.20-5.50) X10*6/uL Hgb 10.4 L (12.0-16.0) g/dl Hct 30.5 L (37.0-47.0) % MCV 86.4 (80.0-98.0) fL MCH 29.5 (27.0-33.0) pg MCHC 34.1 (31.0-35.0) g/dl RDW 13.4 (11.0-16.0) % Plt Count 247 D (160-400) X10*3/uL MPV 11.4 (9.4-12.3) fL Immature Gran % (Auto) 2.9 H (0.0-0.4) % Neut % (Auto) 60.0 (45-73) % Lymph % (Auto) 24.0 (20-40) % Garrett % (Auto) 9.4 (2-11) % Eos % (Auto) 3.3 (0-4) % Baso % (Auto) 0.4 (0-2) % Lymph # (Auto) 1.8 (1.2-4.9) X10*3/uL Garrett # (Auto) 0.7 (0.1-1.2) X10*3/uL Eos # (Auto) 0.3 (0.0-0.4) X10*3/uL Baso # (Auto) 0.0 (0.0-0.2) X10*3/uL Abs Immat Gran (auto) 0.22 H (0.00-0.03) X10*3/uL Absolute Neuts (auto) 4.5 (2.0-8.3) x10*3/uL Absolute Nucleated RBC 0.000 (0.0-0.012) X10*3/uL Nucleated RBC % (auto) 0.0 (0.0-0.2) /100WBC Sodium 142 (135-145) mmol/L Potassium 3.3 (3.3-5.1) mmol/L Chloride 109 H (96-108) mmol/L Carbon Dioxide 23 (22-29) mmol/L Anion Gap 13 (12-20) BUN 5 L (9-16) mg/dL Creatinine 0.61 (0.5-1.4) mg/dL Estim Creat Clear Calc 139.3 Estimated GFR > 60 Random Glucose 112 (60-115) mg/dL Calcium 8.6 (8.4-10.2) mg/dL Magnesium 1.8 (1.6-2.6) mg/dL Total Bilirubin 0.3 (0.0-1.0) mg/dL AST 31 (5-31) U/L ALT 19 (0-31) U/L Alkaline Phosphatase 138 H (39-117) U/L Total Protein 6.6 (6.5-8.0) g/dL Albumin 3.5 (3.5-5.0) g/dL Discharge Plan Discharge Clinical Impression: Palpitations, Sinus tachycardia Patient Disposition: Home, Self-Care Instructions: Heart Palpitations (ED) Prescriptions: New metoprolol succinate [Toprol XL] 25 mg tablet extended release 24 hr 25 mg PO DAILY Qty: 20 0RF No Action acetaminophen [Tylenol Extra Strength] 500 mg tablet 1,000 mg PO QID PRN (Reason: fever or pain) Qty: 14 0RF azithromycin 250 mg tablet See Rx Instructions .ROUTE .COMPLEX Qty: 6 0RF Rx Instructions: take 500 mg today (day 1), then 250 mg for 4 days (days 2-5) ondansetron 4 mg tablet,disintegrating 4 mg PO Q8H PRN (Reason: nausea and vomiting) Qty: 20 0RF amoxicillin 500 mg tablet 500 mg PO BID Qty: 20 0RF metoprolol succinate [Toprol XL] 25 mg tablet extended release 24 hr 25 mg PO DAILY Qty: 30 2RF Vitamin 28 mg iron- 800 mcg tablet 1 tab PO DAILY Qty: 30 0RF cyclobenzaprine 10 mg tablet 10 mg PO TID PRN (Reason: mucle spasm) Qty: 20 0RF ibuprofen 800 mg tablet 800 mg PO TID PRN (Reason: pain) Qty: 30 0RF Print Language: Ecuadorean
[2025-04-17] MEDS: Lactated Ringers 1,000 ML 999 ML IV (09:45)
--- NOTE | 2025-04-17 09:48 | PC.NURSE ---
patient presents to ED with complaints of feeling as if she is in SVT. she states she has struggled with this for 16yr. patient currently 7mo , states has been going well, states she has placenta previa. patient placed on tele monitor, noted to be in sinus tach, rate 110s. #20 placed in LAC, labs obtained and sent. patient is alert and oriented, states she has lower abd pain that has been going on for a while during , ob is following for this. medicated per SEP.
[2025-04-17 10:00] LABS: MANUAL DIFF FLAG NO
[2025-04-17 10:10] LABS: Hematocrit 30.5 % (37.0-47.0); Hemoglobin 10.4 g/dl (12.0-16.0); Imm Gran Abs Auto 0.22 X10*3/uL (0.00-0.03); Imm Gran Pct Auto 2.9 % (0.0-0.4); Lymphocytes Absolute Auto 1.8 X10*3/uL (1.2-4.9); Mean Corpuscular HGB Conc 34.1 g/dl (31.0-35.0); Mean Corpuscular Hemoglobin 29.5 pg (27.0-33.0); Mean Corpuscular Volume 86.4 fL (80.0-98.0); NRBC Abs Auto 0.000 X10*3/uL (0.0-0.012); NRBC Pct Auto 0.0 /100WBC (0.0-0.2); Platelet Count 247 X10*3/uL (160-400); Red Blood Count 3.53 X10*6/uL (4.20-5.50); White Blood Count 7.5 X10*3/uL (4.8-10.8)
[2025-04-17 10:17] LABS: Alanine Aminotransferase 19 U/L (0-31); Albumin Level 3.5 g/dL (3.5-5.0); Alkaline Phosphatase 138 U/L (39-117); Anion Gap 13 (12-20); Aspartate Amino Transferase 31 U/L (5-31); Blood Urea Nitrogen 5 mg/dL (9-16); Calcium 8.6 mg/dL (8.4-10.2); Carbon Dioxide 23 mmol/L (22-29); Chloride 109 mmol/L (96-108); Creatinine Clr Calc Pharmacy 139.3; Estimated Glomerular Filt Rate > 60; Potassium 3.3 mmol/L (3.3-5.1); Sodium 142 mmol/L (135-145); Total Protein 6.6 g/dL (6.5-8.0)
[2025-04-17 11:24] VITALS: BP 106/69; PULSE 105; RESP 18; TEMP 36.7; O2SAT 99
[2025-04-17 11:31] LABS: Magnesium 1.8 mg/dL (1.6-2.6)
--- OUTSIDE RECORDS SUMMARY | 2025-04-17 11:57 | XMS_ITS | Encounter Summary ---
Author Organization [facility] Address [address] [place] [address] Care Team Providers Care Records Supervisor Name Role Phone Hal Ansari MD Primary Care Provider Reason for Visit * Reason Onset Date Comments Problem 04/12/2025 Encounter Details Date Type Department Care Team ([facility] Contact Info) Description 04/12/2025 Telephone Obstetrics and Gynecology - [address] [phone] Mary Ann José CNM [address] [place] [id number] Social History Tobacco Use Types Packs/Day Years Used Date Smoking Tobacco: Former Cigarettes Smokeless Tobacco: Never Alcohol Use Standard Drinks/Week Comments Not Currently 0 (1 standard drink = 0.6 oz pur e alcohol) Estimated Date of Delivery Comme nts Yes 06/11/2025 Date entered wendy or to episode creation Sex and Gender Information Value Date Recorded Sex Assigned at Not on file Legal Sex Female 8:46 AM EST Gender Identity Not on file Sexual Orientation Not on file documented as of this encounter Progress Notes * Davida Correa RN - 04/12/2025 10:09 AM EDT Spoke with pt- c/o pelvic pressure and sharp vaginal and buttocks pain. Advised this is normal at end of and this being her 5th baby. Advised belt/cradle and change positions to see if baby will reposition as well. Pt agrees. Denies LOF,bleeding. +FM * Roya Conrad - 04/12/2025 10:01 AM EDT Pt calling, states has been feeling vaginal pressure and vag spotting. Pls advise documented in this encounter Plan of Treatment Upcoming Encounters Date Type Department Care Team (Late st Contact Info) Description 04/30/2025 10:00 AM EDT Ancillary Procedure Maternal Medicine - [address] [phone] 05/02/2025 1:15 PM EDT Routine Obstetrics and Gynecology - [address] [phone] Mary Ann José, [address] 05/08/2025 1:15 PM EDT Routine Obstetrics and Gynecology - [address] [phone] Romina Olivas, [address] [address] 05/15/2025 1:15 PM EDT Routine Obstetrics and Gynecology - [address] [phone] Romina Olivas, [facility] [address] [place] [address] 05/22/2025 1:15 PM EDT Routine Obstetrics and Gynecology - [address] [phone] Romina Olivas, [address] [address] 05/29/2025 1:15 PM EST Routine Obstetrics and Gynecology - [address] [phone] Romina Olivas, [facility] [address] [place] [address] documented as of this encounter Visit Diagnoses Not on filedocumented in this encounter Care Teams Records Supervisor Relationship Specialty Start Date End Date Hal Ansari MD [address] [place] [address] Dr David MA PCP - General Family Medicine 04/03/25 documented as of this encounter
--- OUTSIDE RECORDS SUMMARY | 2025-04-17 11:57 | XMS_ITS | Clinical Summary ---
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 Active vit no.[id number] ( Plus Vitamin-Mineral) 27 mg iron- 1 mg tablet Take 1 tablet by mouth 1 (one) time each day. 90 tablet 3 5 Active ferrous gluconate (FERGON) 324 mg (38 mg iron) tablet Take 1 tablet (324 mg total) by mouth 1 (one) time each day. 30 each 11 5 12/26/19 26 Active sertraline (ZOLOFT) 50 mg tablet Take 1 tablet (50 mg total) by mouth 1 (one) time each day. 90 tablet 3 5 Active aspirin 81 mg EC tablet Take 2 tablets (162 mg total) by mouth 1 (one) time each day. 180 tablet 1 5 01/03/20 26 Active hydrOXYzine pamoate (VistariL) 25 mg capsule Take 1 capsule (25 mg total) by mouth 3 (three) times a day if needed for itching. 30 capsule 2 5 Active Active Problems Problem Noted Date Diagnosed Date Placenta previa in second trimester 03/07/2025 Insufficient care in second trimester 0 03/06/2025 Overview (03/06/2025): Ip at 17wks Returned for next appt at 26wks Reports transportation issues 01/04/2025 Right-sided low back pain with right-sided sciat ica 01/02/2025 Assessment & Plan (01/02/2025 3:18 PM EDT): Referred to PT. History of marijuana use 12/25/2024 Overview (12/25/2024): + at intake care, subsequent in second tr imester 12/24/2024 Overview (12/24/2024): 1. [facility] [address] [place] [id number] ([phone]) 2. Delivery site: [facility] 3. Mobile Mommas: N/A 4. Dating criteria: early ultrasound 5. Blood type: O-Positive 6. Genetic screening: Date: Result: Panorama: Ordered Horizon: Ordered Nuchal: Too late to be ordered Survey: MSAFP: 6. GBS: Date: 7. FOB name: Jacky Roth 8. Plans A. Epidural or other pain management - B. Labor support identified - C. Tdap - Date: Flu - Date: D. Breast or Bottle feed: Bottle feeding E. Baby's name - F. Circumcision - no 9. Hospital Course: Multigravida of advanced maternal age in second trimester 12/24/2024 Overview (01/02/2025): ASA 162 mg daily at 12w through delivery-ordered Referral for NIPT if desired-low risk Detailed US-ordered Weekly NST at 36 weeks Assessment & Plan (01/02/2025 3:23 PM EDT): Discussed increased risks of HTN, DM, and other complications of . Encouraged to start ASA to help decrease risk of Pre-E. Detailed US-ordered. Weekly NST at 36 weeks Anemia 12/20/2024 Overview (12/25/2024): Started iron 12/25/2024 Assessment & Plan (01/02/2025 3:05 PM EDT): Continue oral iron Anxiety, generalized 12/20/2024 Depression 12/20/2024 Overview (03/06/2025): On zoloft in the past. No therapist 03/06: +depression, denies SI or HI agrees to therapy, not taking zoloft regularly, reviewed compliance will improve mood, rx vistaril. Referral to [facility] Pt reports has number for crisis hotline Assessment & Plan (01/02/2025 3:20 PM EDT): Discussed options for management with therapy and medications. She was interested in starting meds. Will start Zoloft 50 mg daily and see her back at next visit. Can increase from there prn. Discussed SSRI, especially Zoloft, observationally safe in . Some babies can have jitteriness or need help breathing initially after , but not common. Given info for MCPAP for Moms and she agrees to call and get set up. 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 Not with last. Assessment & Plan (01/02/2025 3:21 PM EDT): Discussed increased risk of recurrence if baby is as large as first or second, but given she has had two successful vaginal births since, reasonable to still plan for vaginal . SVT (supraventricular tachycardia) (CMS/[facility] V24) 12/20/2024 Overview (01/02/2025): Diagnosed with SVT at the time of her first . Set up with Cardiology for ablation. Never had it followed up. When it happens, she just goes to the ED and gets meds refilled. Taking metoprolol daily. Assessment & Plan (01/07/2025 3:52 PM EDT): Paroxysmal supraventricular tachycardia. Clinically she describes episodes of likely recurrent SVT. I do not have prior documentation of the rhythm at the time of her episodes. EKG is unremarkable at present. I had extensive discussion with the patient regarding approaches. For paroxysmal SVT would normally recommend continued rate control therapy; metoprolol would be considered reasonably safe given her . The alternative options would be antiarrhythmic options such as flecainide (would be hesitant to recommend this without clear documentation of the actual arrhythmia) or SVT ablation. We concluded on the basis of the frequency and severity of her episodes that she will continue with her current metoprolol and vagal maneuvers as needed. I will plan for follow-up in around 1 year to allow her to recover from at which point we can consider an SVT ablation which might be an effective long- term treatment strategy Assessment & Plan (01/02/2025 3:04 PM EDT): Referred to Cardiology for evaluation and ongoing medical management. Continue metoprolol for now. Sickle cell trait ([facility] V24) 12/20/2024 Overview (01/02/2025): Partner also has trait, one of their 4 children has sickle cell disease. Assessment & Plan (01/02/2025 3:06 PM EDT): Referred to [facility] for consultation, but patient aware she has 25% chance that child will be affected given she and her partner are positive. Microscopic hematuria 07/03/2022 RLQ abdominal pain 07/03/2022 Overview (01/29/2025): Last Assessment & Plan: Counseled patient no evidence of PID, adnexal mass, UTI. Since she has trace blood in urine, could be a kidney stone. Encouraged to push fluids. Will obtain a pelvic US to assess for adnexal pathology. Will send urine culture to rule out UTI. Encouraged to use heat, ibuprofen and Tylenol for pain and return to ED if pain acutely worsens. Anxiety 11/13/2019 Overview (01/29/2025): Last Assessment & Plan: Referrd to [facility] for moms. Encouraged physical activity. Can take Benadryl for sleep instead of using MJ. Marijuana smoker, continuous 11/07/2019 Overview (01/29/2025): Counseled on the risks of THC exposure to fetus after 14 weeks which include and not limited to data suggesting behavioral issues and learning issues Also discussed legal implications if not legal and recommendations to not breast-feed while smoking. She expressed understanding Last Assessment & Plan: Discussed risks associated with marijuana use in are based on limited studies and include risk of decreased IQ, cognitive delay, and attention deficit. I also explained that use is not recommended while breast feeding due to substantial amount passed through breast milk with minimal known about computer terminal operator affects. She understood. She plans to continue to cut back. I recommended we address her anxiety in alternate safe ways in . UDS at next visit. Estimated Date of Delivery Comme nts Yes 06/11/2025 Date entered wendy or to episode creation Resolved Problems Problem Noted Date Diagnosed Date Resolved Date care, subsequent pr egnancy in second trimester 12/20/2024 12/25/2024 Multigravida of advanced mat ernal age in second trimester 12/20/2024 12/25/2024 Encounters Date Type Department Care Team Description 04/12/2025 Telephone Obstetrics and Gynecology - [address] [phone] Mary Ann José CNM 04/03/2025 11:00 AM EDT Ancillary Procedure Maternal Medicine - [address] [phone] care, subsequent in second trimester; Placenta previa antepartum in second trimester 04/03/2025 10:00 AM EDT Routine Obstetrics and Gynecology - [address] [phone] Romina Olivas CNM Supervision of high risk in second trimester (Primary Dx); 30 weeks gestation of 03/18/2025 2:30 PM EDT Routine Obstetrics & Gynecology - [address] [phone] Romina Olivas CNM Supervision of high risk in second trimester (Primary Dx); 27 weeks gestation of 03/07/2025 9:00 AM EDT Ancillary Procedure Maternal Medicine - [address] [phone] care, subsequent in second trimester; Multigravida of advanced maternal age in second trimester; History of marijuana use; Drug use affecting , antepartum, second trimester; Placenta previa antepartum, second trimester; Encounter for screening for malformations 03/06/2025 11:00 AM EDT Routine Obstetrics and Gynecology - [address] [phone] Romina Olivas CNM Supervision of high risk in second trimester (Primary Dx); 26 weeks gestation of ; Insufficient care in second trimester; Encounter for screening for maternal depression; Positive depression screening; Depression during in second trimester 02/26/2025 Telephone Obstetrics and Gynecology - [place] [address] [place] [phone] Romina Olivas CNM from Last 3 Months Immunizations Name Administration Dates Next Due Tdap Tetanus diptheria acell ular pertussis (Boostrix; Adacel) 7yo and older 02/27/2020,06/29/2016 Surgical History Surgery Date Site/Laterality Comments OTHER SURGICAL HISTORY 2001 PROCEDURE: [facility] TONSILLECTOMY PRIMARY/SECONDARY AGE 11/> TONSILLECTOMY 07/25/2001 - 07/24/2002 Medical History Medical History Date Comments Depression 11/26/2015 DX:Depression Sickle cell trait ([facility] V24) 11/05/2013 DX:Sickle cell trait ([facility]) History of chlamydia 08/26/2008 DX:History of chlamydia History of anemia 05/31/2016 DX:History of anemia; COMMENT: H&H 10.4 / 30.9 History of colposcopy 01/23/2016 DX:History of colposcopy; COMMENT: negative ASCUS with positive high ris k HPV cervical 12/04/2015 DX:ASCUS with positive high risk HPV cervical Supraventricular tachycardia ([facility] V24) 08/02/2016 DX:Supraventricular tachycar peyman ([facility]); COMMENT: Sees printing estimator Lindsay History of anxiety 11/08/2013 DX:History of anxiety Asthma 04/25/2013 DX:Asthma History of urinary tract infection 11/05/2013 DX:History of urinary tract infection History of vitamin D deficiency 04/25/2013 DX:History of vitamin D deficiency; COMMENT: Vitamin D = 11 Anemia DX:Anemia Anxiety state DX:Anxiety state Venereal disease DX:Venereal dis ease Heart palpitations 2015 DX:Heart palp itations; COMMENT: needs to see printing estimator for further evaluation Family History Medical History Relation Name Comments No Known Problems Brother Sickle cell anemia Daughter Marcie No Known Problems Father unknown Alcohol/Drug Maternal Grandfather Breast cancer Maternal Grandmother Migraines Mother Ovarian cancer Mother Seizures Mother No Known Problems Paternal Grandfather No Known Problems Paternal Grandmother Other: Other Sister 1 scoloiosis, mat ernal half sister No Known Problems Sister 2 maternal h shraddha sister No Known Problems Sister 3 maternal h shraddha sister Depression Sister 4 Cervical cancer Neg Hx Uterine cancer Neg Hx Relation Name Status Comments Brother Alive Daughter Marcie Father Other Maternal Grandfather Maternal Grandmother Alive Mother Alive Paternal Grandfather Other Paternal Grandmother Other Sister 1 Alive Sister 2 Alive Sister 3 Alive Sister 4 Alive Son 1 Marleens Son 2 Jacky Alive Son 3 Anabella Alive Social History Tobacco Use Types Packs/Day Years Used Date Smoking Tobacco: Former Cigarettes Smokeless Tobacco: Never Tobacco Cessation:Counseling Given: Not Answered Alcohol Use Standard Drinks/Week Comments Not Currently 0 (1 standard drink = 0.6 oz pur e alcohol) Estimated Date of Delivery Comme nts Yes 06/11/2025 Date entered wendy or to episode creation Sex and Gender Information Value Date Recorded Sex Assigned at Not on file Legal Sex Female 8:46 AM EST Gender Identity Not on file Sexual Orientation Not on file Obstetrics History * This document contains information received from the source organization and may not represent a complete record from that organization. Para Term AB IAB SAB Ectopic Multiple Livin g Live Births 8 4 4 4 4 Date Outcome GA Total Labor Labor/2nd/3rd Weight Sex Type Anes PTL Sharri A1 A5 Name Clin 2006 2007 Term 40w 3d 4224 g (149 oz) M Vag-S pont Epidur al Livin g [address] Mcknight Complications:Shoulder Dysto viry Delivery Location:[facility] 2008 2010 Term 40w 2d 3629 g (128 oz) M Vag-S pont Epidur al N Livin g [address] Dr Mcknight Complications:None Delivery Location:[facility] 2014 2016 Term 40w 2d 3175 g (112 oz) M Vag-S pont Epidur al N Livin g Ham oliver CNM Complications:None Delivery Location:[facility] 2019 Term 41w 1d 3997 g (141 oz) F Vag-S pont Livin g Reinaldo Myrick CNM Current Summary Episode Dates Number of Fetuses Estimated Date of Delivery 12/20/2024 - Present (04/17/2025) 1 06/11/2025 (based on Alternate REGINE Entry) Dating Summary Based On REGINE GA Diff Last Menstrual Period on 09/10/2024 (Approximate ) 06/17/2025 -6d Ultrasound on 12/19/2024 06/11/2025 Same GA:15w1d Alternate REGINE Entry 06/11/2025 Working Comment:Date entered prior t o episode creation Overview and Plan :Ar[place]a Delivery Plans Post-Delivery Plans Planned delivery method:Vaginal Feeding intentions:Exclusive Formula Planned delivery location:[facility] Circumcis ion requested:No Planned anesthesia:Epidural Acceptable blood products:All Vitals Pregravid Weight Height TWG (As of 04/17/2025) Pregrav id BMI 59 kg (130 lb) 23.5 kg (51 lb 12.8 oz) Notes Progress Notes - Routine Pre - 04/03/2025 - GA:30w1d 04/03/2025 - 30w1d - Romina Olivas CNM Subjective Chief Complaint Patient presents with Routine Visit Alice Owens is a 34 y.o. at 30w1d with a working estimated date of delivery of Estimated Date of Delivery: 06/11/25 by Last Menstrual Period who presents for a routine visit. She denies vaginal bleeding or leakage of fluid, denies uc. reports FM Objective Physical Exam Vitals BP: 107/72 Weight: 82.5 kg (181 lb 12.8 oz) Assessment Heart Rate: 155 Fundal Height (cm): 30 cm Ob check list: Tdap due: declines Flu vaccine due: n/a If glucose completed: 1hr glucose pending Gbs: n/a Problem list reviewed. Assessment/Plan Supervision of high risk in second trimester (Primary) 30 weeks gestation of F/u routinely Progress Notes - Routine Pre - 03/18/2025 - GA:27w6d 03/18/2025 - w6d - Romina Olivas CNM Subjective Chief Complaint Patient presents with Routine Visit Alice Owens is a 34 y.o. at 27w6d with a working estimated date of delivery of Estimated Date of Delivery: 06/11/25 by Last Menstrual Period who presents for a routine visit. She denies vaginal bleeding or leakage of fluid, denies uc. reports FM Objective Physical Exam Vitals BP: 105/68 (P 88) Weight: 81.5 kg (179 lb 9.6 oz) Fundal Height (cm): 321 cm (s>d has repeat growth on 04/03) Heart Rate: 150 Ob check list: Tdap due: declines Flu vaccine due: n/a If glucose completed: 1hr glucose pending Gbs: n/a Problem list reviewed. Assessment/Plan Supervision of high risk in second trimester (Primary) 27 weeks gestation of F/u routinely 03/18/2025 - - Kamar Sepncer MA Ob f/up 1hr gtt not done Epds 15 Progress Notes - Routine Pre - 03/06/2025 - GA:26w1d 03/06/2025 - - Romina Olivas CNM Subjective Chief Complaint Patient presents with Routine Visit Alice Owens is a 34 y.o. at 26w1d with a working estimated date of delivery of Estimated Date of Delivery: 06/11/25 by Last Menstrual Period who presents for a routine visit. She denies vaginal bleeding or leakage of fluid, denies uc. reports FM Lapse in care d/t transportation pt had not yet had anatomy planning to see if done today 3rd trim labs today recommended Objective Physical Exam Vitals BP: 126/76 Weight: 79.3 kg (174 lb 12.8 oz) Fundal Height (cm): 27 cm Heart Rate: 140 [place] Depression Scale: In the Past 7 Days I have been able to laugh and see the funny side of things.: Definitely not so much now I have looked forward with enjoyment to things.: Rather less than I used to I have blamed myself unnecessarily when things went wrong.: Yes, some of the time I have been anxious or worried for no good reason.: Yes, very often I have felt scared or panicky for no good reason.: No, not much Things have been getting on top of me.: Yes, sometimes I haven't been coping as well as usual I have been so unhappy that I have had difficulty sleeping.: Yes, sometimes I have felt sad or miserable.: Yes, most of the time I have been so unhappy that I have been crying.: Only occasionally The thought of harming myself has occurred to me.: Never [place] Depression Scale Total: 17 Ob check list: Tdap due: declines Flu vaccine due: n/a If glucose completed: 1hr glucose pending Gbs: n/a Problem list reviewed. Assessment/Plan Supervision of high risk in second trimester (Primary) - CBC and differential; Future - Glucose tolerance test, 1h gestation; Future - Treponema pallidum antibody with reflex to RPR and particle agglutination; Future 26 weeks gestation of Insufficient care in second trimester Encounter for screening for maternal depression - Health and behavioral assessment; Future Positive depression screening Reviewed compliance in care F/u routinely U/s to be scheduled immediately 3rd trim labs +depression, denies SI or HI agrees to therapy, not taking zoloft regularly, reviewed compliance will improve mood, rx vistaril. Referral to [facility] Pt reports has number for crisis hotline Progress Notes - Initial Pre gabriela - 01/02/2025 - GA:17w1d 01/02/2025 - 17w1d - Zachary gooden, Marta Wood MD OB 12 week appt IP: S: Alice is a 34 y.o. year old here for IP visit at 17 weeks. Her is unplanned. She and the father of the baby are happy. 17, 13, 8 and 4 yo at home. Patient's last menstrual period was 09/10/2024 (approximate). She is uncertain of her LMP with regular cycles. is currently dated by LMP only. She complains of right low back pain. Sometimes shooting down into her posterior thigh. Has tried hot water in the shower, Tylenol/ Has been there for almost a month. No obvious injury. Just came on . She denies vaginal bleeding or cramping. Mood is irritable, low. Took Zoloft years ago for depression and anxiety. Helped. No therapist. Doesn't talk to anyone about it. No good support. Lives with her FOB who is helpful when he can. Safe at home. No HI, SI. Self harm in the past, but not in some years. No bleeding. Some mild intermittent cramping. No N/V. Taking PNV and iron. Has had two shoulder dystocias, first and third. First was large. Not with last. Diagnosed with SVT at the time of her first . Set up with Cardiology for ablation. Never had it followed up. When it happens, she just goes to the ED. Was taking metoprolol. Taking daily. Partner is positive Sickle Cell trait. O: Blood pressure 105/56, pulse 81, resp. rate 15, weight 69.3 kg (152 lb 12.8 oz), last menstrual period 09/10/2024. See OB physical and labs. Vitals BP: 105/56 Weight: 69.3 kg (152 lb 12.8 oz) No results found for: ABORH Lab Results Component Value Date RH Positive 12/24/2024 A: at 17w1d weeks gestation. 1. care, subsequent in second trimester 2. Multigravida of advanced maternal age in second trimester 3. History of marijuana use 4. Sickle cell trait (CMS/HCC V24) 5. SVT (supraventricular tachycardia) ([facility] V24) 6. History of shoulder dystocia in prior 7. Depression during in second trimester 8. Anxiety, generalized 9. Other iron deficiency anemia 10. Right-sided low back pain with right-sided sciatica, unspecified chronicity 11. Screen for STD (sexually transmitted disease) 12. Screening for cervical cancer P: Genprobe obtained today. Oriented to THoNE MG and anticipated course. Discussed collaborative practice and [facility] delivery. Reviewed healthy eating and normal weight gain in . Encouraged patient to push PO fluids. Counseled about warning signs of the first trimester and how to contact automation tech provider. Discussed the benefits of breast feeding and strongly encouraged to consider this. Counseled regarding the diagnosis of anomalies. She was offered a referral to maternal medicine for nuchal lucency/Langley testing. She accepted testing. Too late for nuchal the referral. RTO 4 weeks. The patient does not require anesthesia consult. This patient's VTE risk status is low. [place] Depression Scale: In the Past 7 Days I have been able to laugh and see the funny side of things.: Definitely not so much now I have looked forward with enjoyment to things.: Definitely less than I used to I have blamed myself unnecessarily when things went wrong.: Not very often I have been anxious or worried for no good reason.: Hardly ever I have felt scared or panicky for no good reason.: No, not at all Things have been getting on top of me.: Yes, sometimes I haven't been coping as well as usual I have been so unhappy that I have had difficulty sleeping.: Yes, sometimes I have felt sad or miserable.: Yes, quite often I have been so unhappy that I have been crying.: No, never The thought of harming myself has occurred to me.: Never [place] Depression Scale Total: 12 [place] SCREENING CHARGE (Clinic Only): [id number] SVT (supraventricular tachycardia) ([facility] V24) Referred to Cardiology for evaluation and ongoing medical management. Continue metoprolol for now. Anemia Continue oral iron Sickle cell trait ([facility] V24) Referred to [facility] for consultation, but patient aware she has 25% chance that child will be affected given she and her partner are positive. Multigravida of advanced maternal age in second trimester Discussed increased risks of HTN, DM, and other complications of . Encouraged to start ASA to help decrease risk of Pre-E. Detailed US-ordered. Weekly NST at 36 weeks Right-sided low back pain with right-sided sciatica Referred to PT. Depression Discussed options for management with therapy and medications. She was interested in starting meds. Will start Zoloft 50 mg daily and see her back at next visit. Can increase from there prn. Discussed SSRI, especially Zoloft, observationally safe in . Some babies can have jitteriness or need help breathing initially after , but not common. Given info for MCPAP for Moms and she agrees to call and get set up. History of shoulder dystocia in prior Discussed increased risk of recurrence if baby is as large as first or second, but given she has had two successful vaginal births since, reasonable to still plan for vaginal . Marta Corona MD on 01/02/2025 at 3:23 PM EDT 01/02/2025 - 17w1d - Elyse Wagner MA [place] Depression Scale: In the Past 7 Days I have been able to laugh and see the funny side of things.: Definitely not so much now I have looked forward with enjoyment to things.: Definitely less than I used to I have blamed myself unnecessarily when things went wrong.: Not very often I have been anxious or worried for no good reason.: Hardly ever I have felt scared or panicky for no good reason.: No, not at all Things have been getting on top of me.: Yes, sometimes I haven't been coping as well as usual I have been so unhappy that I have had difficulty sleeping.: Yes, sometimes I have felt sad or miserable.: Yes, quite often I have been so unhappy that I have been crying.: No, never The thought of harming myself has occurred to me.: Never [place] Depression Scale Total: 12 [place] SCREENING CHARGE (Clinic Only): [id number] Progress Notes - Clinical [place] pport - 12/24/2024 - GA:15w6d 12/24/2024 - 15w6d - Angelica Oscar RN Alice Owens is a 34 y.o. old female at 15w6d. This is Unplanned. The patient feels adjusting about the . The FOB is supportive. This is their 5th baby together. His name is Jacky. Patient's last menstrual period was Patient's last menstrual period was 09/10/2024 (approximate). (exact date)., which would make her currently 15w6d with an Estimated Date of Delivery: 06/11/25. She is uncertain of her date. An ultrasound has already been performed on 12/12/2024, REGINE changed to 06/11/2025 as dates do not agree with LMP Patient has significant history of: Shoulder dystocia for first and third deliveries, IOL for post-dates, and pt has SVT-needs to see cadiologist, anemia OB Past Medical History: Have you had or do you currently have: Diabetes? No Hypertension? No Heart disease, Mitral valve Prolapse, or Rheumatic fever? Joy-XRT-tqnkn t osee cadiologist-currently on metoprolol 25mg daily An Autoimmune disease such as Lupus or Rheumatoid Arthritis? No Epilepsy, Seizures, or Spells? No Migraine Headaches? No Stroke or loss of function or sensation? No Additional Questions: Have you ever been treated for anxiety and/or depression? Yes-not currently on medications-not on meds for a long time Are you having problems with crying spells or loss of self-esteem? No Have you ever required psychiatric care? No Have you ever had hepatitis, liver disease or jaundice? No Have you ever been treated for blood clots in your veins, deep venous thrombosis, inflammation in the veins, thrombosis, phlebitis, pulmonary embolism or varicosities? No Have you had excessive bleeding after surgery or dental work? No Do you bleed more than other women after a cut or scratch? No Do you have a history of anemia? Yes-with pregnancies Have you ever had Thyroid problems or taken Thyroid medications? No Do you have any other Endocrine Problems (ie. PCOS)? No Have you ever been in a major accident or suffered serious trauma? No Within the last year, has anyone hit, slapped, kicked or otherwise hurt you? No In the last year, has anyone forced you to have sex when you didn't want to? No Do you feel safe at home? Yes Have you ever received a blood transfusion? No Would you refuse a blood transfusion if a doctor judged to be medically necessary? No Would you rather than receive a blood transfusion? No If you answered yes to the above questions, is this for zoroastrianism reasons? N/A Do you know what your blood type is or if you are Rh Negative? no Have you ever had abnormal antibodies in your blood? no Have you ever had asthma? Yes-as a child Have you every had Tuberculosis? No Have you ever had any breast problems? No Have you ever breast fed? No Have you ever had any gynecological surgical procedures such as cervical conization, LEEP procedure, Laser treatment, cryosurgery of the cervix or dilation and curettage, etc? Yes-colposcopy in 2016 Have you had any other surgical procedures? Yes-tonsillectomy 2002 Have you ever been hospitalized overnight for a non-surgical reason excluding normal delivery? No Have you ever had anesthesia complications? No Have you ever had an abnormal pap smear? Yes-2016 Do you have a history of abnormalties of the uterus? No Did your mother take GRACE or any other hormones when she was with you? No Did it take more than one year to become ? No Have you ever been evaluated or treated for infertility? No Is there a history of medical problems in your family which you feel might adversely affect your health or ? No Do you have any other problems we have not asked you about which you feel may be important for us to know for this ? Yes Do you currently have any of the following symptoms since your last menstrual period: Abdominal pain, blood in the stool or urine, chest pain, shortness of breath, coughing or vomiting up blood, your heart racing or skipping beats, nausea and/or vomiting, pain on urination, or vaginal discharge or vaginal bleeding? Yes-pt has discharge-was seen at ER twice-will call for results Genetic Screening/Teratology Counseling- Includes patient, baby's father, or anyone in either family with: Patient's age 35 years or older as of estimated date of delivery Yes Thalassemia (Bulgarian, Maldivian, Mediterranean, or background): MCV less than 80 No Neural tube defect (Meningomyelocele, Spina bifida, or Anencephaly) No Congenital heart defect No Down syndrome No Ruy-Sachs (Ashkenazi Jain, Cajun, Japanese Cook Islander) No Taylor disease (Ashkenazi Jain) No Familial dysautonomia (Ashkenazi Jain) No Sickle cell disease or trait () Yes-mom trait-daughter has disease-FOB has never had testing-but daughter has disease Hemophilia or other blood disorders No Muscular dystrophy No Cystic fibrosis No Burlington's chorea No Intellectual disability and/or autism Yes-daughter is developmentally delayed-on waiting list to get tested. Her 8 year old is also on the waiting list to get tested for autism. If yes, was the person tested for Fragile X? No Other inherited genetic or chromosomal disorder No Maternal metabolic disorder (eg. Type 1 diabetes, PKU) No Patient or baby's father had child with defects not listed above No Recurrent loss, or a stillbirth No Medications (including supplements, vitamins, herbs, or OTC drugs)/illicit/recreational drugs/alcohol since last menstrual period Yes=- metoprolol 25mg If yes, agent(s) and strength/dosage: Any other No OB Infection History: Do you object to being tested for Hepatitis B? No Do you object to being tested for HIV? No Do you feel that you are at high risk for coming contact with the AIDS virus? No Have you ever been treated for tuberculosis? No Have you ever received the BCG vaccine? No Have you ever had a positive skin test for Tuberculosis? No Do you live with someone who has Tuberculosis? No Have you ever been exposed to Tuberculosis? No Do you have Genital Herpes? No Does your partner have Genital Herpes? No Have you had a rash or viral illness since your last period? Yes -covid mid September Have you ever had Gonorrhea, Chlamydia, Syphilis, Venereal Warts, Trichomoniasis, Pelvic Inflammatory Disease (PID) or any other sexually transmitted disease? Yes-chklamydia long time ago Do you know if you are a Group B Streptococcus Carrier? no Did you have the Chicken Pox/Varicella? yes Were you vaccinated against Chicken Pox/Varicella? no Have you had any other infectious diseases? No Alice Owens has been instructed on the following: random urine drug screening and an initial urine drug screen has been ordered. Alice Owens has also been informed of the production service manager provider recommendation for first trimester nuchal lucency testing to be performed during her . Alice Owens has also been made aware of the time sensitive nature for this testing to be completed. . The patient now has a gestational age of 15w6d. The patient is beyond 14 weeks gestation and is too late for the first trimester screening. Ethnicity Based Genetic Testing has been reviewed and the [employer] information sheet has been provided to the patient in their After Visit Summary. The patient was also advised that genetic testing may not be covered by all insurances. The patients states that they understand this information. The patient states that she has not had not the genetic screening for Horizon 14 done in the past during a previous . Results were has agreed that she does want genetic testing for Horizon 14 The following Labs have been ordered: UDS, Panorama with Gender, Ob Panel. She is aware that her insurance may or may not cover Panorama and/or Horizon 14 test and discussed john only mcdonald for test(s) - info given today in her after visit summary . She would like to proceed with testing. For Horizon Carrier Screening, if patient has [employer], [employer] or [employer] insurances: Not Applicable Electronically signed by: Angelica Oscar RN 12/24/24 2:18 PM EDT Progress Notes - Clinical [place] pport - 12/20/2024 - GA:15w2d 12/20/2024 - 15w2d - Maya Reynolds RN Images from the original note were not included. Pt was seen at [facility] 528/25 for Right sided flank pain denies VB. US performed and REGINE 06/11/25 . [facility] Medical records sent for to obtain US report. Late to care for insurance issues pt states. POS back office test. Encounter Date: 12/20/2024 LMP date: 09/10/24 unsure EGA: 15w2d EDC: 06/11/25 Current medication list reviewed. Patient is not taking medication that may have an adverse effect during the . Allergies: [facility] Pharmacy: [facility] Any current medical problems?: anemia, asthma ,SVT, Depression, anxiety , SAVD x 4, SAB x1 ,IAB x1 Any previous complications?: shoulder dystocia x 2 first 1st and 3rd delivery (1st send prescription for Aspirin 81mg 1 tab po daily if between 6 week - 13w6d gestation. If BMI 30 or greater, CHTN, Hx Pre-E. Twins: can wait till 12 weeks to order as will need 162mg daily) Patient is not currently being treated for insulin dependent diabetes. Patient is not currently being treated for hypertension. Patient doesn't have a history of ectopic , has a history of miscarriage, and has a history of termination. Appointment is to be made with MD prior to OB work up if pt is currently being treated for hypertension. Patients currently being treated for diabetes should establish care with a [facility] provider. OK to see CNM for IP visit? Yes Pre- Weight (if known): 130lb Height: 5'5 Pre- BMI: 21.6 Recommended weight gain: [place]: BMI 18.5 to 24.9 kg/m2 (normal weight) - Weight gain 25 to 35 lb (11.5 to 16.0 kg) (BMI equal or greater than 50 prior to or at 28 weeks needs to deliver at [facility]). Pre BMI of 50 or more should continue to be transferred to [facility] prior to establishing care. Pt was counseled that we only deliver at [facility]. She is aware that if she would like to deliver at [facility] will need to establish care with a [facility] provider. Schedule Workup for 10 weeks: In Person scheduled 12/24/24@2pm Schedule IP at 12 weeks with appropriate provider: scheduled 01/01/25@2pm with Jimmy COLLIER Warning signs of vaginal bleeding and pelvic pain were reviewed. The patient was advised to call the office, day or night, if these symptoms occur. Patient instructions relating to nausea and vomiting in the 1st trimester, what to avoid in (alcohol, drugs, smoking, environmental exposures), dietary and medication restrictions and self care for colds and flu given to patient. A prescription for Vitamins Plus was sent to the pharmacy. The patient understands all instructions and is in agreement with plan of care. Last Filed Vital Signs Vital Sign Reading Time Taken Comments Blood Pressure 107/72 04/03/2025 10:04 AM EDT Pulse 97 01/07/2025 1:27 PM EDT Temperature - - Respiratory Rate 15 01/02/2025 2:20 PM EDT Oxygen Saturation 97% 01/07/2025 1:27 PM EDT Inhaled Oxygen Concentration - - Weight 82.5 kg (181 lb 12.8 oz) 025 10:04 AM EDT Height 165.1 cm (5' 5 ) 01/07/2025 1:27 PM EDT Body Mass Index 30.25 01/07/2025 1:27 PM EDT Plan of Treatment Upcoming Encounters Date Type Department Care Team (Late st Contact Info) Description 04/30/2025 10:00 AM EDT Ancillary Procedure Maternal Medicine - [address] [phone] 05/02/2025 1:15 PM EDT Routine Obstetrics and Gynecology - [address] [phone] Mary Ann José [address] 05/08/2025 1:15 PM EDT Routine Obstetrics and Gynecology - [address] [phone] Romina Olivas [address] [address] 05/15/2025 1:15 PM EDT Routine Obstetrics and Gynecology - [address] [phone] Romina Olivas, [facility] [address] [place], [place] 05/22/2025 1:15 PM EDT Routine Obstetrics and Gynecology - [address] [phone] Romina Olivas CNM [address] [place] [address] 05/29/2025 1:15 PM EST Routine Obstetrics and Gynecology [address] [phone] Romina Olivas CNM [address] [place] [address] Health Maintenance Due Date Last Done Comments Hepatitis A Vaccines (1 of 2 - Risk 2-dose series) 2008 Hepatitis B Vaccines (1 of 3 - 19+ 3-dose series) 2008 Pneumococcal Vaccine: Pediatrics (0 to 5 Years) and At-Risk Patients (6 to 49 Years) (1 of 2 - PCV) 2008 Social Influencers of Health Screening 07/03/2022 Depression Screening 07/25/2024 COVID-19 Vaccine (1 - 2023-2 5 season) 2025 Influenza Vaccine (#1) 2025 RSV Immunization Adult Patients (1 - Risk 1-dose series) 04/16/2025 Cervical Cancer Screening: HPV 01/02/2030 01/02/2025 DTaP,Tdap,and Td Vaccines (3 - Td or Tdap) 02/26/2030 02/27/2020, 06/29/2016 HIV Screening Completed 12/24/2024 Hepatitis C Screening Completed 12/24/2024 HIB Vaccines Aged Out No longer eligi [...] Procedure Name Priority Date/Time Associated Diagnosis Comments US OB FOLLOWUP PER FETUS Routine 04/03/2025 11:02 AM EDT care, subsequent in second trimester Placenta previa antepartum in second trimester US OB DETAILED SINGLE OR FIRST GESTATION Routine 03/07/2025 10:11 AM EDT Multigravida of advanced maternal age in second trimester History of marijuana use Drug use affecting , antepartum, second trimester Placenta previa antepartum, second trimester Encounter for screening for malformations HPV WITH REFLEX GENOTYPE Routine 01/02/2025 2:58 PM EDT Screening for cervical cancer HEPATITIS C ANTIBODY Routine 12/24/2024 3:24 PM EDT Encounter for screening of mother HIV 1, 2 ANTIBODY, P24 ANTIGEN WITH REFLEX TO DIFFERENTIATION Routine 12/24/2024 3:24 PM EDT Encounter for screening of mother from Last 3 Months or Most Recently Relevant to Health Maintenance Results * US OB Followup per Fetus (04/03/2025 11:02 AM EDT) Anatomical Region Laterality Modality Body Ultrasound 04/03/2025 10:5 3 AM EDT Narrative 04/03/2025 12:39 PM EDT OBSTETRICS REPORT (Signed Final 04/03/2025 12:39 pm) PATIENT INFO: ID #: [id number] : [birth year] (34 yrs)(F) Name: ALICE OWENS Visit Date: 04/03/2025 10:53 am PERFORMED BY: Attending: Peyton Briggs MD Performed By: Jania Aponte [facility] Referred By: Romina Olivas [facility] Ref. Address: [address] [place] [id number] Location: [facility]) SERVICE(S) PROVIDED: [place] [id number] INDICATIONS: Advanced maternal age in multigravida, O09.522 second trimester Medication exposure, third trimester O09.893 Complete placenta previa without O44.03 hemorrhage, 3rd trimester 30 weeks gestation of Z3A.30 TECHNIQUE/SCAN QUALITY: Technique: Transabdominal Scan Satisfactory Quality: OB HISTORY: : 8 Term: 4 SAB: 1 TOP: 2 Livin VITAL SIGNS: Weight (lb) Height BMI 174 5'5 28.95 EVALUATION: Number Of Fetuses: 1 Heart Rate(bpm): 146 Cardiac Activity: Observed Regular rhythm Presentation: Breech Placenta Location: Posterior Appearance: Grade 2 Relation to CVX: Previa Amniotic Fluid DANDY FV: Within Normal Limits RUQ(cm) RLQ(cm) LUQ(cm) LLQ(cm) 5.55 5.38 6.61 5.35 DANDY Sum(cm) %Tile Largest Pocket(cm) 22.89 92 6.61 BIOMETRY: BPD: 82.3 mm G.Age: 33w 1d 98 % HC: 302 mm G.Age: 33w 4d 95 % AC: 276.7 mm G.Age: 31w 5d 87 % FL: 57 mm G.Age: 29w 6d 28 % CI: 74.78 % 70 - 86 FL/HC: 18.9 % 19.2 - 21.4 HC/AC: 1.09 0.99 - 1.21 FL/BPD: 69.3 % 71 - 87 FL/AC: 20.6 % 20 - 24 Est. FW: 1770 gm 3 lb 14 oz 82 % GESTATIONAL AGE: LMP: 29w 2d Date: 09/10/24 REGINE: 06/17/25 U/S Today: 32w 1d REGINE: 05/28/25 Best: 30w 1d Det. By: Early REGINE: 06/11/25 Ultrasound (12/19/24) STANDARD ANATOMY: Cranium: Normal appearance Stomach: Normal appearance Kidneys: Normal appearance Bladder: Normal appearance COMMENTS: Ms. Owens is being seen for placental location and growth. She was diagnosed with a complete previa at 26 weeks. - Her medical history is significant for anxiety/depression. Her current medications include 50mg Zoloft daily. - Her obstetrical history is significant four term vaginal deliveries, two terminations, and one miscarriage. - She had cell free DNA screening performed. Results were low-risk for all conditions assessed. - Ultrasound findings: The estimated weight is 1,770 grams, at the 82nd percentile.The amniotic fluid index is 22.89 cm, appropriate for the gestational age. - Transabdominally, the placenta is posterior in implantation and remains a previa. - The above findings were conveyed to the patient by Dr. Briggs during today's visit. - Plan: She has been scheduled to return in 4 weeks for placenta location and growth. Peyton Briggs MD Electronically Signed Final Report 04/03/2025 12:39 pm Procedure Peyton Olvera MD - 04/03/2025 OBSTETRICS REPORT (Signed Final 04/03/2025 12:39 pm) PATIENT INFO: ID #: [id number] : [birth year] (34 yrs)(F) Name: ALICE OWENS Visit Date: 04/03/2025 10:53 am PERFORMED BY: Attending: Peyton Briggs MD Performed By: Jania Aponte RDMS Referred By: Romina POLK Ref. Address: [address] [place] [address] Location: [facility]) SERVICE(S) PROVIDED: [place] [id number] INDICATIONS: Advanced maternal age in multigravida, O09.522 second trimester Medication exposure, third trimester O09.893 Complete placenta previa without O44.03 hemorrhage, 3rd trimester 30 weeks gestation of Z3A.30 TECHNIQUE/SCAN QUALITY: Technique: Transabdominal Scan Satisfactory Quality: OB HISTORY: : 8 Term: 4 SAB: 1 TOP: 2 Livin VITAL SIGNS: Weight (lb) Height BMI 174 5'5 28.95 EVALUATION: Number Of Fetuses: 1 Heart Rate(bpm): 146 Cardiac Activity: Observed Regular rhythm Presentation: Breech Placenta Location: Posterior Appearance: Grade 2 Relation to CVX: Previa Amniotic Fluid DANDY FV: Within Normal Limits RUQ(cm) RLQ(cm) LUQ(cm) LLQ(cm) 5.55 5.38 6.61 5.35 DANDY Sum(cm) %Tile Largest Pocket(cm) 22.89 92 6.61 BIOMETRY: BPD: 82.3 mm G.Age: 33w 1d 98 % HC: 302 mm G.Age: 33w 4d 95 % AC: 276.7 mm G.Age: 31w 5d 87 % FL: 57 mm G.Age: 29w 6d 28 % CI: 74.78 % 70 - 86 FL/HC: 18.9 % 19.2 - 21.4 HC/AC: 1.09 0.99 - 1.21 FL/BPD: 69.3 % 71 - 87 FL/AC: 20.6 % 20 - 24 Est. FW: 1770 gm 3 lb 14 oz 82 % GESTATIONAL AGE: LMP: 29w 2d Date: 09/10/24 REGINE: 06/17/25 U/S Today: 32w 1d REGINE: 05/28/25 Best: 30w 1d Det. By: Early REGINE: 06/11/25 Ultrasound (12/19/24) STANDARD ANATOMY: Cranium: Normal appearance Stomach: Normal appearance Kidneys: Normal appearance Bladder: Normal appearance COMMENTS: Ms. Owens is being seen for placental location and growth. She was diagnosed with a complete previa at 26 weeks. - Her medical history is significant for anxiety/depression. Her current medications include 50mg Zoloft daily. - Her obstetrical history is significant four term vaginal deliveries, two terminations, and one miscarriage. - She had cell free DNA screening performed. Results were low-risk for all conditions assessed. - Ultrasound findings: The estimated weight is 1,770 grams, at the 82nd percentile.The amniotic fluid index is 22.89 cm, appropriate for the gestational age. - Transabdominally, the placenta is posterior in implantation and remains a previa. - The above findings were conveyed to the patient by Dr. Briggs during today's visit. - Plan: She has been scheduled to return in 4 weeks for placenta location and growth. Peyton Briggs MD Electronically Signed Final Report 04/03/2025 12:39 pm us Marta Corona MD IMG OB US PROCEDURES Final Result * US OB Detailed Single or First Gestation (03/07/2025 10:11 AM EDT) Anatomical Region Laterality Modality Body Ultrasound 03/07/2025 9:10 AM EDT Narrative 03/07/2025 11:35 AM EDT OBSTETRICS REPORT (Signed Final 03/07/2025 11:35 am) PATIENT INFO: ID #: [id number] : [birth year] (34 yrs)(F) Name: ALICE OWENS Visit Date: 03/07/2025 09:10 am PERFORMED BY: Attending: Evette Mendez MD Performed By: Steve Daniels [facility] Referred By: Romina Olivas [facility] Ref. Address: [address] [place] [address] Location: [place] [facility] SERVICE(S) PROVIDED: US Level II complete (Targeted OB) [id number] INDICATIONS: Advanced maternal age in multigravida, O09.522 second trimester Medication exposure, second trimester O09.892 Complete placenta previa without O44.02 hemorrhage, 2nd trimester Drug use complicating , second O99.322 trimester Encounter for screening for Z36.3 malformations 26 weeks gestation of Z3A.26 TECHNIQUE/SCAN QUALITY: Technique: Transabdominal Scan Satisfactory Quality: OB HISTORY: : 8 Term: 4 SAB: 1 TOP: 2 Livin VITAL SIGNS: Weight (lb) Height BMI 174 5'5 28.95 EVALUATION: Number Of Fetuses: 1 Cardiac Activity: Observed Presentation: Breech Placenta Location: Posterior Appearance: Grade 2 Relation to CVX: Previa- See comments Cord Insertion: Normal appearance Amniotic Fluid DANDY FV: Within Normal Limits Comment: A >2 x 2 cm pocket of fluid is noted. BIOMETRY: BPD: 70.8 mm G.Age: 28w 3d 95 % HC: 261.1 mm G.Age: 28w 3d 89 % AC: 226.7 mm G.Age: 27w 0d 66 % FL: 48.4 mm G.Age: 26w 2d 34 % HUM: 48.1 mm G.Age: 28w 1d 90 % CER: 30.7 mm G.Age: 26w 6d 64 % NB: 10.32 mm 80 % LV: 5.5 mm CM: 5.9 mm OOD: 43.5 mm G.Age: 25w 0d 59 % CI: 74.13 % 70 - 86 FL/HC: 18.5 % 18.6 - 20.4 HC/AC: 1.15 1.04 - 1.22 FL/BPD: 68.4 % 71 - 87 FL/AC: 21.3 % 20 - 24 Est. FW: 1010 gm 2 lb 4 oz 68 % GESTATIONAL AGE: LMP: 25w 3d Date: 09/10/24 REGINE: 06/17/25 U/S Today: 27w 4d REGINE: 06/02/25 Best: 26w 2d Det. By: Early REGINE: 06/11/25 Ultrasound (12/19/24) DETAILED ANATOMY: Head / Neck Cranial Vault: Normal appearance Cavum Septi Pellucidi: Normal appearance Parenchyma: Normal appearance R. Lat. Ventricle: Normal appearance L. Lat. Ventricle: Normal appearance Corpus Callosum: Normal appearance Midline Falx: Normal appearance R. Choroid Plexus: Normal appearance L. Choroid Plexus.: Normal appearance Cerebellum: Normal appearance CCisterna Magna: Normal appearance Nuchal Fold: Normal appearance Neck: Normal appearance Face Face Profile: Normal appearance Nasal Bone: Normal appearance Coronal Face: Normal appearance Lips: Normal appearance Nose: Normal appearance Lenses: Normal appearance Orbits: Normal appearance Heart Cardiac Activity: Normal appearance Cardiac Rhythm: Normal appearance 4 Chamber View: Normal appearance R. Outflow Tract: Normal appearance L. Outflow Tract: Normal appearance Interventr. Septum: Normal appearance 3 Vessel View: Normal appearance 3V Trachea View: Normal appearance Cardiac Situs: Normal appearance Aortic Arch: Normal appearance SVC: Normal appearance IVC: Normal appearance Ductal Arch: Normal appearance Crossing G. Ves.: Normal appearance Thorax Lungs: Normal appearance Cardiac [place]: Normal appearance Diaphragm: Normal appearance Thoracic Contour: Normal appearance Abdomen Situs: Normal appearance Stomach: Normal appearance Bowel: Normal appearance Liver: Normal appearance Abdominal Wall: Normal appearance Urinary Bladder: Normal appearance R. Kidney: Normal appearance L. Kidney: Normal appearance R. Renal Artery: Normal appearance L. Renal Artery: Normal appearance Umbilical Cord: Normal Appearance UC Vessel Num.: Normal 3VC Cord Insertion: Normal appearance Spine Cervical: Normal appearance Thoracic: Normal appearance Lumbar: Normal appearance Sacral: Normal appearance Shape / Curvature: Normal appearance Over. Soft Tissue: Normal appearance Vertebral Body: Normal appearance Extremities R. Humerus: Normal appearance L. Humerus: Normal appearance R. Forearm: Normal appearance L. Forearm: Normal appearance R. Hand: Normal appearance L. Hand: Normal appearance R. Femur: Normal appearance L. Femur: Normal appearance R. Lower Leg: Normal appearance L. Lower Leg: Normal appearance R. Foot: Normal appearance L. Foot: Normal appearance Other Genitalia: Male CERVIX UTERUS ADNEXA: Right Ovary Not visualized. Left Ovary Not visualized. COMMENTS: Ms. Owens is being seen for a detailed ultrasound for insufficient care and advanced maternal age. - Her medical history is significant for anxiety/depression. Her current medications include 50mg Zoloft daily. - Her obstetrical history is significant four term vaginal deliveries, two terminations, and one miscarriage. - She had cell free DNA screening performed. Results were low-risk for all conditions assessed. - Ultrasound findings: The biometry and anatomical survey are appropriate for the gestational age. - The placenta covers the cervical os and is a complete previa. Placenta previas seen at this gestational age can still resolve by term; otherwise delivery would need to be via . Pelvic rest was recommended. Previa can also be associated with vaginal bleeding; she was counseled to present to Labor and Delivery in the event of vaginal bleeding. - The patient was informed of today's findings over the telephone by Dr. Mendez. - Plan: She has been scheduled to return in 4 weeks to follow up growth and placental location. Evette Mendez MD Electronically Signed Final Report 03/07/2025 11:35 am Procedure Evette Mark MD - 03/07/2025 OBSTETRICS REPORT (Signed Final 03/07/2025 11:35 am) PATIENT INFO: ID #: [id number] : [birth year] (34 yrs)(F) Name: ALICE OWENS Visit Date: 03/07/2025 09:10 am PERFORMED BY: Attending: Evette Mendez MD Performed By: Steve Daniels [facility] Referred By: Romina POLK Ref. Address: [address] [place] [address] Location: [place] [facility] ([facility]) SERVICE(S) PROVIDED: US Level II complete (Targeted OB) 81110 INDICATIONS: Advanced maternal age in multigravida, O09.522 second trimester Medication exposure, second trimester O09.892 Complete placenta previa without O44.02 hemorrhage, 2nd trimester Drug use complicating , second O99.322 trimester Encounter for screening for Z36.3 malformations 26 weeks gestation of Z3A.26 TECHNIQUE/SCAN QUALITY: Technique: Transabdominal Scan Satisfactory Quality: OB HISTORY: : 8 Term: 4 SAB: 1 TOP: 2 Livin VITAL SIGNS: Weight (lb) Height BMI 174 5'5 28.95 EVALUATION: Number Of Fetuses: 1 Cardiac Activity: Observed Presentation: Breech Placenta Location: Posterior Appearance: Grade 2 Relation to CVX: Previa- See comments Cord Insertion: Normal appearance Amniotic Fluid DANDY FV: Within Normal Limits Comment: A >2 x 2 cm pocket of fluid is noted. BIOMETRY: BPD: 70.8 mm G.Age: 28w 3d 95 % HC: 261.1 mm G.Age: 28w 3d 89 % AC: 226.7 mm G.Age: 27w 0d 66 % FL: 48.4 mm G.Age: 26w 2d 34 % HUM: 48.1 mm G.Age: 28w 1d 90 % CER: 30.7 mm G.Age: 26w 6d 64 % NB: 10.32 mm 80 % LV: 5.5 mm CM: 5.9 mm OOD: 43.5 mm G.Age: 25w 0d 59 % CI: 74.13 % 70 - 86 FL/HC: 18.5 % 18.6 - 20.4 HC/AC: 1.15 1.04 - 1.22 FL/BPD: 68.4 % 71 - 87 FL/AC: 21.3 % 20 - 24 Est. FW: 1010 gm 2 lb 4 oz 68 % GESTATIONAL AGE: LMP: 25w 3d Date: 09/10/24 REGINE: 06/17/25 U/S Today: 27w 4d REGINE: 06/02/25 Best: 26w 2d Det. By: Early REGINE: 06/11/25 Ultrasound (12/19/24) DETAILED ANATOMY: Head / Neck Cranial Vault: Normal appearance Cavum Septi Pellucidi: Normal appearance Parenchyma: Normal appearance R. Lat. Ventricle: Normal appearance L. Lat. Ventricle: Normal appearance Corpus Callosum: Normal appearance Midline Falx: Normal appearance R. Choroid Plexus: Normal appearance L. Choroid Plexus.: Normal appearance Cerebellum: Normal appearance CCisterna Magna: Normal appearance Nuchal Fold: Normal appearance Neck: Normal appearance Face Face Profile: Normal appearance Nasal Bone: Normal appearance Coronal Face: Normal appearance Lips: Normal appearance Nose: Normal appearance Lenses: Normal appearance Orbits: Normal appearance Heart Cardiac Activity: Normal appearance Cardiac Rhythm: Normal appearance 4 Chamber View: Normal appearance R. Outflow Tract: Normal appearance L. Outflow Tract: Normal appearance Interventr. Septum: Normal appearance 3 Vessel View: Normal appearance 3V Trachea View: Normal appearance Cardiac Situs: Normal appearance Aortic Arch: Normal appearance SVC: Normal appearance IVC: Normal appearance Ductal Arch: Normal appearance Crossing G. Ves.: Normal appearance Thorax Lungs: Normal appearance Cardiac [place]: Normal appearance Diaphragm: Normal appearance Thoracic Contour: Normal appearance Abdomen Situs: Normal appearance Stomach: Normal appearance Bowel: Normal appearance Liver: Normal appearance Abdominal Wall: Normal appearance Urinary Bladder: Normal appearance R. Kidney: Normal appearance L. Kidney: Normal appearance R. Renal Artery: Normal appearance L. Renal Artery: Normal appearance Umbilical Cord: Normal Appearance UC Vessel Num.: Normal 3VC Cord Insertion: Normal appearance Spine Cervical: Normal appearance Thoracic: Normal appearance Lumbar: Normal appearance Sacral: Normal appearance Shape / Curvature: Normal appearance Over. Soft Tissue: Normal appearance Vertebral Body: Normal appearance Extremities R. Humerus: Normal appearance L. Humerus: Normal appearance R. Forearm: Normal appearance L. Forearm: Normal appearance R. Hand: Normal appearance L. Hand: Normal appearance R. Femur: Normal appearance L. Femur: Normal appearance R. Lower Leg: Normal appearance L. Lower Leg: Normal appearance R. Foot: Normal appearance L. Foot: Normal appearance Other Genitalia: Male CERVIX UTERUS ADNEXA: Right Ovary Not visualized. Left Ovary Not visualized. COMMENTS: Ms. Owens is being seen for a detailed ultrasound for insufficient care and advanced maternal age. - Her medical history is significant for anxiety/depression. Her current medications include 50mg Zoloft daily. - Her obstetrical history is significant four term vaginal deliveries, two terminations, and one miscarriage. - She had cell free DNA screening performed. Results were low-risk for all conditions assessed. - Ultrasound findings: The biometry and anatomical survey are appropriate for the gestational age. - The placenta covers the cervical os and is a complete previa. Placenta previas seen at this gestational age can still resolve by term; otherwise delivery would need to be via . Pelvic rest was recommended. Previa can also be associated with vaginal bleeding; she was counseled to present to Labor and Delivery in the event of vaginal bleeding. - The patient was informed of today's findings over the telephone by Dr. Mendez. - Plan: She has been scheduled to return in 4 weeks to follow up growth and placental location. Evette Mendez MD Electronically Signed Final Report 03/07/2025 11:35 am us Romina Olivas CNM IMG OB US PROCEDURES Final Re sult * HPV with reflex genotype (01/02/2025 2:58 PM EDT) HPV Negative Negative LAB MICROBIOLOGY METHOD 01/03/2025 2:46 PM EDT [facility] ([facility] LAB Brushing/Spatula Cervix uteri structure / Unknown 01/02/2025 2:58 PM EDT 01/03/2025 6:52 AM EDT us Marta Corona MD LAB MOLECULAR DIAGNOSTICS O RDERABLES Final Result [facility] [address] [place] [address], [place] [phone] * Hepatitis C antibody (12/24/2024 3:24 PM EDT) [facility] Hepatitis C Antibody Negative Negative LAB CHEMISTRY METHOD 12/24/2024 7:54 PM EDT [facility] Blood Venous blood specimen / Unknown Venipuncture / Unknown 12/24/2024 3:24 PM EDT 12/24/2024 3:24 PM EDT us Marta Corona MD LAB BLOOD ORDERABLES Final Result Performing Organization Address [facility]/ZIP Co de Phone Number [facility] [address] [place] [address], [place] [phone] * HIV 1,2 antibody, p24 antigen with reflex to differentiation (12/24/2024 3:24 PM EDT) [facility] HIV Combo AB/AG Negative Negative LAB CHEMISTRY METHOD 12/24/2024 7:55 PM EDT [facility] Blood Venous blood specimen / Unknown Venipuncture / Unknown 12/24/2024 3:24 PM EDT 12/24/2024 3:24 PM EDT Narrative [facility] - 12/24/2024 7:55 PM EDT This assay is a 4th generation assay allowing for earlier detection of HIV infection by detecting the presence of the HIV-1 p24 antigen as well as the traditional antibodies to HIV type 1 (including group O) and type 2. Use of a 4th generation assay is the current CDC recommendation for HIV screening. us Marta Corona MD LAB BLOOD ORDERABLES Final Result Performing Organization Address City/[facility]/ZIP Co de Phone Number [facility] [address] [place] [address], [place] [phone] from Last 3 Months or Most Recently Relevant to Health Maintenance Insurance [facility] [employer] Care Teams [employer] Relationship Specialty Start Date End Date Hal Ansari MD [address] [place] [address] Dr Cordon [place], [place] PCP - General Family Medicine 04/03/25
[2025-04-17 13:34] VITALS: BP 106/69; PULSE 101; RESP 18; TEMP 36.7; O2SAT 99
== END 2025-04-17 13:35 | disposition home or self-care (01) ==
PROVIDERS: Emergency Provider Emergency Medicine
DX: R00.2 Palpitations (principal); R00.0 Tachycardia, unspecified; I49.9 Cardiac arrhythmia, unspecified; R11.0 Nausea; Z79.899 Other long term (current) drug therapy
CPT/HCPCS: 36415; 80053; 83735; 85025; 93005; 96360; 99284; 99285; J7120

== ENCOUNTER → 2025-04-17 09:20 | Outpatient (BNV) | payer OTHER, SELFPAY | PROVIDERS: Emergency Provider Emergency Medicine; Visit Provider Internal Medicine Cardiovascular Disease | DX: R00.0 Tachycardia, unspecified (principal) | CPT/HCPCS: 93010 ==

== ENCOUNTER 2025-05-01 18:49 | Emergency (ER) | payer OTHER, SELFPAY ==
--- NOTE | 2025-05-01 18:51 | ECG_ITS ---
Test Reason : CP Blood Pressure : */* mmHG Vent. Rate : 168 BPM Atrial Rate : * BPM P-R Int : * ms QRS Dur : 92 ms QT Int : 272 ms P-R-T Axes : * 71 0 degrees QTcB Int : 454 ms Supraventricular tachycardia Otherwise normal ECG When compared with ECG of 17-Apr-2025 09:20, Supraventricular tachycardia has replaced Normal sinus rhythm Referred By: Generic ED Physician Electronically Signed By: CALEB BELTRAN MD
[2025-05-01 19:11] VITALS: BP 83/62; PULSE 180; RESP 22; TEMP 36.1; O2SAT 100; BMI 26.6
[2025-05-01 19:19] LABS: MANUAL DIFF FLAG NO
[2025-05-01] MEDS: Adenosine 6 MG/2 ML VIAL IVPUSH (19:20)
[2025-05-01 19:21] LABS: Hematocrit 29.7 % (37.0-47.0); Hemoglobin 10.3 g/dl (12.0-16.0); Imm Gran Abs Auto 0.29 X10*3/uL (0.00-0.03); Imm Gran Pct Auto 2.9 % (0.0-0.4); Lymphocytes Absolute Auto 2.5 X10*3/uL (1.2-4.9); Mean Corpuscular HGB Conc 34.7 g/dl (31.0-35.0); Mean Corpuscular Hemoglobin 28.5 pg (27.0-33.0); Mean Corpuscular Volume 82.3 fL (80.0-98.0); NRBC Abs Auto 0.000 X10*3/uL (0.0-0.012); NRBC Pct Auto 0.0 /100WBC (0.0-0.2); Platelet Count 238 X10*3/uL (160-400); Red Blood Count 3.61 X10*6/uL (4.20-5.50); White Blood Count 10.1 X10*3/uL (4.8-10.8)
--- NOTE | 2025-05-01 19:28 | ECG_ITS ---
Test Reason : SVT Blood Pressure : */* mmHG Vent. Rate : 95 BPM Atrial Rate : 95 BPM P-R Int : 114 ms QRS Dur : 76 ms QT Int : 344 ms P-R-T Axes : 39 63 25 degrees QTcB Int : 432 ms Normal sinus rhythm Normal ECG When compared with ECG of 01-May-2025 18:55, Vent. rate has decreased by 73 bpm Normal sinus rhythm has replaced Supraventricular tachycardia Referred By: Brad Awad Electronically Signed By: CALEB BELTRAN MD
[2025-05-01 19:30] LABS: Partial Thromboplastin Time 24.4 SEC (26.7-34.1)
[2025-05-01 19:37] LABS: Alanine Aminotransferase 16 U/L (0-31); Albumin Level 3.4 g/dL (3.5-5.0); Alkaline Phosphatase 166 U/L (39-117); Anion Gap 15 (12-20); Aspartate Amino Transferase 28 U/L (5-31); Blood Urea Nitrogen 5 mg/dL (9-16); Calcium 8.6 mg/dL (8.4-10.2); Carbon Dioxide 18 mmol/L (22-29); Chloride 110 mmol/L (96-108); Creatinine Clr Calc Pharmacy 172.5; Estimated Glomerular Filt Rate > 60; Magnesium 1.8 mg/dL (1.6-2.6); Potassium 3.5 mmol/L (3.3-5.1); Sodium 139 mmol/L (135-145); Total Protein 6.3 g/dL (6.5-8.0)
[2025-05-01 19:45] LABS: Troponin-I High Sensitivity 8.3 ng/L (<3.5-17.0)
[2025-05-01 19:59] LABS: Appearance Urine Clear; Glucose Urine UA Negative (Negative); PH 7.0 (5.0-9.0); Specific Gravity - Urine <= 1.005 (1.005-1.025)
[2025-05-01 20:16] VITALS: BP 91/55; PULSE 101; RESP 16; TEMP 36.6; O2SAT 99
--- NOTE | 2025-05-01 20:40 | ED.CHESTPAIN ---
HPI - Chest Pain General Chief Complaint: Chest Pain Stated Complaint: CP Time Seen by Provider: 05/01/25 19:03 Source: patient Mode of arrival: ambulatory Limitations: no limitations History of Present Illness ED Provider: Dr. Brad Awad HPI narrative: 35-year-old female history of SVT , EDC 06/11/2025, 34 weeks who is followed by her OBGYN at [facility] closely for placenta previa with plan to perform at 37 weeks who presents emergency department for evaluation of rapid heart rate/SVT and abdominal pain. Patient states that she gets frequent SVT in his has been more frequent during her . Today at around 16:00 hours she felt like her heart was racing rapidly. She states that often her SVT were moves all however proximally 1 hour prior to coming to the emergency department she developed intermittent lower abdominal pain which she describes as a cramping sensation which will last about 5 minutes. She states that the pain feels different than her labor pains from previous pregnancies. Patient was also complaining of chest tightness, shortness of breath which she states she has had in the past with her SVT. Initial heart rate was 180, EKG at triage revealed that the patient was in an SVT with a ventricular rate of 168 beats per minute. She was also also hypotensive with a BP of 83/62. She was brought back immediately to a treatment room. Related Data Previous Rx's ?Medication ?Instructions ?Recorded acetaminophen 500 mg tablet 1,000 mg (2 x 500 mg) PO QID PRN 07/25/20 (Tylenol Extra Strength) fever or pain #14 tabs azithromycin 250 mg tablet See Rx Instructions PO .COMPLEX #6 07/25/20 tabs cyclobenzaprine 10 mg tablet 10 mg PO TID PRN mucle spasm #20 08/17/22 tabs ibuprofen 800 mg tablet 800 mg PO TID PRN pain #30 tabs 08/17/22 metoprolol succinate 25 mg 25 mg PO DAILY #30 tabs 01/11/24 tablet,extended release 24 hr (Toprol XL) amoxicillin 500 mg tablet 500 mg PO BID #20 tabs 04/13/24 ondansetron 4 mg disintegrating 4 mg PO Q8H PRN nausea and 04/13/24 tablet vomiting #20 tabs vitamins no.159-iron 1 tab PO DAILY #30 tabs 04/28/25 fumarate 28 mg-folic acid 800 mcg tablet ( Vitamin) metoprolol succinate 25 mg 25 mg PO DAILY #20 tabs 04/17/25 tablet,extended release 24 hr (Toprol XL) Allergies Allergy/AdvReac Type Severity Reaction Status Date / Time No Known Allergies (No Known Allergy Verified 05/01/25 19:12 Allergies*) Review of Systems Review of Systems: Yes all other systems are reviewed and are negative [facility] Past Medical History Medical History SVT (supraventricular tachycardia) Social History Social History Alcohol intake: never Advance Directives: No Advance Directives Information Provided: No Do you have a plan to hurt others: No Plan Physical Exam Vital Signs: Vital Signs: Last Vital Signs Temp 97.8 F 05/01/25 20:16 Pulse 101 H 05/01/25 20:16 Resp 16 05/01/25 20:16 BP 91/55 L 05/01/25 20:16 Pulse Ox 99 05/01/25 20:16 O2 Del Method Room Air 05/01/25 20:16 BMI result Body Mass Index 26.6 Exam: General: Awake, alert in no distress, anxious Head: Normocephalic, atraumatic EENT: PERRL, sclera and conjunctiva are normal, mouth with no erythema or exudates Neck: Supple, no adenopathy Lung: breath sounds symmetric, no wheezing, no rales and no rhonchi Chest: symmetric movement, nontender Heart: Tachycardia with a normal S1-S2, no murmurs Abdomen: Gravid, moderate left lower and right lower quadrant tenderness, mild diffuse tenderness, normoactive bowel sounds Back: no vertebral tenderness, no CVAT Extremities: no deformities, moves all extremities symmetrically, no edema Neuro: Awake, alert, oriented, normal speech, cranial nerves 2-12 intact, moves all extremities symmetrically Psych: Pleasant, cooperative Medications Administered Discontinued Medications Generic Name Dose Route Start Last Admin Trade Name Freq PRN Reason Stop Dose Admin Adenosine 6 mg 05/01/25 19:19 05/01/25 19:20 Adenosine 6 Mg/2 Ml Vial IVPUSH 10/08/25 19:20 6 mg ONCE ONE Administration Sodium Chloride 1,000 mls @ 999 mls/hr 05/01/25 19:08 05/01/25 19:21 Ns IV 05/01/25 20:08 999 mls/hr .Q1H1M STA Administration Medical Decision Making Medical Decision Making [facility] Narrative: 35-year-old female history of SVT , EDC 06/11/2025, 34 weeks who is followed by her OBGYN at [facility] closely for placenta previa with plan to perform at 37 weeks who presents emergency department for evaluation of rapid heart rate/SVT and abdominal pain. Patient states that she gets frequent SVT in his has been more frequent during her . Today at around 16:00 hours she felt like her heart was racing rapidly. She states that often her SVT were moves all however proximally 1 hour prior to coming to the emergency department she developed intermittent lower abdominal pain which she describes as a cramping sensation which will last about 5 minutes. She states that the pain feels different than her labor pains from previous pregnancies. Patient was also complaining of chest tightness, shortness of breath which she states she has had in the past with her SVT. Initial heart rate was 180, EKG at triage revealed that the patient was in an SVT with a ventricular rate of 168 beats per minute. Physical examination revealed tachycardia with a normal S1 and S2, abdomen was gravid with mild diffuse tenderness and moderate left lower and right lower quadrant tenderness. She had no pedal edema. Differential diagnosis: ?Includes but is not limited to myocardial infarction, myocardial ischemia, supraventricular tachycardia, labor, preeclampsia, anemia, electrolyte abnormalities Course: Patient was placed on a cardiac and O2 saturation monitor. Patient was noted to be in an SVT on the monitor. She was given adenosine 6 mg IV and was successfully chemically cardioverted to a normal sinus rhythm. Patient was also given normal saline IV x1 L. My independent interpretation patient's laboratory evaluation is as follows: WBC normal 10,100. Normocytic anemia with an H&H of 10.3 and 29.7-consistent with . Platelet count was normal 238,000. Bicarb low 18. BUN and creatinine normal 5 and 0.4. AST and ALT were normal 28 and 16. Alk-phos elevated 166. Bilirubin normal. Troponin detectable but not elevated at 8.3 (normal less than 17 in women). TSH normal 2.82. Urinalysis was negative for protein, leukocyte esterase, nitrates and blood. After the patient was chemically cardioverted, her chest pain and shortness of breath resolved however she continued to have lower abdominal pain and lower abdominal tenderness. I initially discuss the patient's presentation with the OBGYN on-call at [facility] and they do not accept any women that are less than 35 weeks . They recommended contacting [facility]. I did discuss the patient's presentation with the on-call OBGYN resident, Dr. Patino. After discussion with his attending physician, Dr. Urban, he accepted the patient ER to [place] [address] for /uterine monitoring. The patient will be transferred by [facility] ambulance. Lab Data 05/01/25 19:15 05/01/25 19:15 Labs: Lab Results 05/01/25 05/01/25 Range/Units 19:15 19:42 WBC 10.1 (4.8-10.8) X10*3/uL RBC 3.61 L (4.20-5.50) X10*6/uL Hgb 10.3 L (12.0-16.0) g/dl Hct 29.7 L (37.0-47.0) % MCV 82.3 (80.0-98.0) fL MCH 28.5 (27.0-33.0) pg MCHC 34.7 (31.0-35.0) g/dl RDW 13.7 (11.0-16.0) % Plt Count 238 (160-400) X10*3/uL MPV 11.1 (9.4-12.3) fL Immature Gran % (Auto) 2.9 H (0.0-0.4) % Neut % (Auto) 59.6 (45-73) % Lymph % (Auto) 24.7 (20-40) % Borden % (Auto) 10.6 (2-11) % Eos % (Auto) 1.8 (0-4) % Baso % (Auto) 0.4 (0-2) % Lymph # (Auto) 2.5 (1.2-4.9) X10*3/uL Borden # (Auto) 1.1 (0.1-1.2) X10*3/uL Eos # (Auto) 0.2 (0.0-0.4) X10*3/uL Baso # (Auto) 0.0 (0.0-0.2) X10*3/uL Abs Immat Gran (auto) 0.29 H (0.00-0.03) X10*3/uL Absolute Neuts (auto) 6.0 (2.0-8.3) x10*3/uL Absolute Nucleated RBC 0.000 (0.0-0.012) X10*3/uL Nucleated RBC % (auto) 0.0 (0.0-0.2) /100WBC APTT 24.4 L (26.7-34.1) SEC Sodium 139 (135-145) mmol/L Potassium 3.5 (3.3-5.1) mmol/L Chloride 110 H (96-108) mmol/L Carbon Dioxide 18 L (22-29) mmol/L Anion Gap 15 (12-20) BUN 5 L (9-16) mg/dL Creatinine 0.45 L (0.5-1.4) mg/dL Estim Creat Clear Calc 172.5 Estimated GFR > 60 Random Glucose 104 (60-115) mg/dL Calcium 8.6 (8.4-10.2) mg/dL Magnesium 1.8 (1.6-2.6) mg/dL Total Bilirubin 0.3 (0.0-1.0) mg/dL AST 28 (5-31) U/L ALT 16 (0-31) U/L Alkaline Phosphatase 166 H (39-117) U/L Troponin I High Sens 8.3 D (<3.5-17.0) ng/L Total Protein 6.3 L (6.5-8.0) g/dL Albumin 3.4 L (3.5-5.0) g/dL TSH 2.82 (0.32-4.0) uIU/mL Urine Color Yellow Urine Appearance Clear Urine pH 7.0 (5.0-9.0) Ur Specific [place] <= 1.005 (1.005-1.025) Urine Protein Negative (Neg-Trace) mg/dL Urine Glucose (UA) Negative (Negative) mg/dL Urine Ketones Trace (Negative) mg/dL Urine Blood Negative (Negative) Urine Nitrite Negative (Negative) Ur Leukocyte Esterase Negative (Negative) Critical Care Time Critical Care Time Critical Care Time: Yes Total Critical Care Time: 35 Attestation: Critical Care: The patient was critically ill with a high probability of imminent or life threatening deterioration. I spent greater than 30 minutes of discontinuous time evaluating the patient,delivering critical care at the bedside, discussing and evaluating pertinent data with consultants. Critical care time does not include time spent performing separately billable procedures or teaching. Total time spent performing critical care was 35 minutes. Discharge Plan Discharge Clinical Impression: Supraventricular tachycardia, Abdominal cramping, Third trimester , Placenta previa Patient Disposition: [facility] Transfer Details: [facility], accepting attending Dr. Urban Prescriptions: No Action acetaminophen [Tylenol Extra Strength] 500 mg tablet 1,000 mg PO QID PRN (Reason: fever or pain) Qty: 14 0RF azithromycin 250 mg tablet See Rx Instructions .ROUTE .COMPLEX Qty: 6 0RF Rx Instructions: take 500 mg today (day 1), then 250 mg for 4 days (days 2-5) ondansetron 4 mg tablet,disintegrating 4 mg PO Q8H PRN (Reason: nausea and vomiting) Qty: 20 0RF amoxicillin 500 mg tablet 500 mg PO BID Qty: 20 0RF metoprolol succinate [Toprol XL] 25 mg tablet extended release 24 hr 25 mg PO DAILY Qty: 20 0RF metoprolol succinate [Toprol XL] 25 mg tablet extended release 24 hr 25 mg PO DAILY Qty: 30 2RF Vitamin 28 mg iron- 800 mcg tablet 1 tab PO DAILY Qty: 30 0RF cyclobenzaprine 10 mg tablet 10 mg PO TID PRN (Reason: mucle spasm) Qty: 20 0RF ibuprofen 800 mg tablet 800 mg PO TID PRN (Reason: pain) Qty: 30 0RF Print Language: Korean
--- NOTE | 2025-05-01 20:50 | PC.NURSE ---
Report called to Yola at [facility].
[2025-05-01 21:18] LABS: INTERNATIONAL NORM RATIO 0.9 (0.9-1.1); Prothrombin Time 10.4 SEC (10.9-12.4)
--- NOTE | 2025-05-01 21:31 | PC.NURSE ---
Report given to [facility] ambulance personnel for transport to [facility].
[2025-05-01 21:41] VITALS: BP 91/55; PULSE 101; RESP 16; TEMP 36.6; O2SAT 99
== END 2025-05-01 21:42 | disposition short-term general hospital (02) ==
PROVIDERS: Registered Nurse Emergency; Emergency Provider Emergency Medicine Emergency Medical Services
DX: O99.891 Other specified diseases and conditions complicating pregnancy (principal); O44.00 Complete placenta previa NOS or without hemorrhage, unspecified trimester; I47.10 Supraventricular tachycardia, unspecified; R07.89 Other chest pain; R11.0 Nausea; R06.02 Shortness of breath; R10.22 Pelvic and perineal pain left side; Z3A.37 37 weeks gestation of pregnancy; Z79.899 Other long term (current) drug therapy
CPT/HCPCS: 36415; 80053; 81003; 83735; 84443; 84484; 85025; 85610; 85730; 86850; 86900; 86901; 93005; 96361; 96374; 99285; J0153

== ENCOUNTER → 2025-05-01 18:51 | Outpatient (BNV) | payer OTHER, SELFPAY | PROVIDERS: Emergency Provider Emergency Medicine Emergency Medical Services; Visit Provider Internal Medicine Cardiovascular Disease | DX: I47.10 Supraventricular tachycardia, unspecified (principal) | CPT/HCPCS: 93010 ==